=== PATIENT | female | born 1955 | race Caucasian/White ===

== ENCOUNTER 2017-10-20 11:31 | Inpatient (IN) | payer OTHER ==
[2017-10-20] MEDS ORDERED: NS 0.9% 1000 ML* 1,000 ML IV ONE (11:33)
--- NOTE | 2017-10-20 11:52 | RAD ---
INDICATION: Left-sided weakness. COMPARISON: There are no prior studies available for comparison. TECHNIQUE: Contiguous axial sections of the brain were obtained from the skull base to the vertex without contrast. FINDINGS: The ventricles, cisterns and sulci are enlarged consistent with age-related atrophy. There are multiple focal areas of decreased density in the subcortical and periventricular white matter suggestive of moderate chronic small vessel ischemic changes. No other focal abnormality or mass effect is seen. There is no evidence for hemorrhage. No significant focal osseous abnormality is seen. The visualized portion of the paranasal sinuses and mastoid air cells appear clear. The results of this exam were called to the referring clinician at 1147 hours. IMPRESSION: 1. NO EVIDENCE FOR GROSS ACUTE INFARCT, MASS EFFECT OR HEMORRHAGE. 2. FINDINGS MOST CONSISTENT WITH CHRONIC SMALL VESSEL ISCHEMIC CHANGES.
[2017-10-20] MEDS ORDERED: ALTEPLASE IVPB ONE (12:06)
[2017-10-20] MEDS ORDERED: ALTEPLASE IV ONE (12:06)
[2017-10-20] MEDS ORDERED: Alteplase* 100 MG VIAL ONE (12:09)
--- NOTE | 2017-10-20 12:18 | RAD ---
Indication: Code roblero. Comparison: No relevant prior exams available on the [facility] [place]. Technique: Upright AP 1155 hours Report: Clear lungs and pleural spaces. Negative for pneumothorax. The heart, pulmonary vasculature, and mediastinal contours are unremarkable. Unremarkable osseous structures and soft tissue contours. IMPRESSION: No evidence for acute intrathoracic disease.
[2017-10-20 12:25] LABS: Hematocrit 44 % (35-47); Mean Corpuscular HGB Conc 34 g/dl (31-36); Mean Corpuscular Hemoglobin 30 pg (27-31); Mean Corpuscular Volume 88 fL (80-97); Mean Platelet Volume 8 um3 (7.4-10.4); Red Blood Count 5.03 10^6/ul (4.0-5.4); Red Cell Distribution Width 13 % (10.5-15); White Blood Count 10.1 10^3/ul (3.5-10.8)
[2017-10-20 12:47] LABS: Albumin 4.1 g/dL (3.2-5.2); BUN/Creatinine Ratio 22.1 (8-20); Calcium 9.5 mg/dL (8.6-10.3); EGFR Non-African American 66.9 (>60); HDL Cholesterol 48.1 mg/dL; Potassium 3.9 mmol/L (3.5-5.0); Total Bilirubin 0.4 mg/dL (0.2-1.0); Total Protein 7.1 g/dL (6.4-8.9)
[2017-10-20] MEDS ORDERED: Iohexol 350* (CONTRAST) 500 ML MDV IV ONE (13:04)
--- NOTE | 2017-10-20 14:20 | RAD ---
INDICATION: CVA COMPARISON: CT brain October 20, 2017 TECHNIQUE: Axial source images were acquired with coronal and sagittal reconstructions. CT angiographic technique was utilized with injection of 80 mL Visipaque 350. FINDINGS: Aortic arch: There are no CT angiogram abnormalities of the arch or the great vessels arising from the arch. Right carotid: The internal carotid artery, carotid bifurcation, extracranial portions of the internal carotid artery, carotid artery at the skull base, carotid siphon, and carotid termination appear normal. Left carotid:The internal carotid artery, carotid bifurcation, extracranial portions of the internal carotid artery, carotid artery at the skull base, carotid siphon, and carotid termination appear normal. Right middle and anterior cerebral arteries: There are no CT angiographic abnormalities of the middle or anterior cerebral arteries. Left middle and anterior cerebral arteries: There are no CT angiographic abnormalities of the middle or anterior cerebral arteries Right vertebral: The CT angiographic appearance of the vertebral artery is normal. Left vertebral: The CT angiographic appearance of the vertebral artery is normal. Basilar artery: The basilar artery and basilar tip appear normal. Posterior cerebral arteries: The distal distribution of the right and left posterior cerebral arteries is normal. [place]: The CT angiographic appearance of the [place] is normal. Source images show a solid, round to oval in shape, 2.8 x 2.0 cm anterior mediastinal mass. There are no other masses in the neck or visualized mediastinum. There are no focal brain parenchymal abnormalities or abnormal areas of enhancement. IMPRESSION: 1. No CT angiographic abnormalities. 2. Source images show a 2.8 cm anterior mediastinal mass. Differential considerations would include but not be limited to lymphoma, teratoma or thymic lesion. Consider PET imaging. Mediastinoscopy may be indicated. CPT II Codes: 3100F PQRS
[2017-10-20] MEDS ORDERED: Ondansetron INJ* 2 MG/ML VIAL IV PRN (14:48)
[2017-10-20] MEDS ORDERED: Acetaminophen TAB* 325 MG PO PRN (14:48)
--- NOTE | 2017-10-20 14:48 | ED ---
Vitaliy Chawla Benjamin, scribed for Varun Lopez MD on 10/20/17 at 1209 . Neurological HPI - HPI Summary HPI Summary: 62yo female BIBA for sudden onset of left sided weakness and dizziness. No prior hx of CVA. Per EMS, pts systolic BP was in 220s. Pt denies any decreased sensation on the left side. No AMS. No visial changes. No speech impairment. - History of Current Complaint Stated Complaint: CVA Time Seen by Provider: 10/20/17 11:35 Hx Obtained From: Patient Onset/Duration: Sudden Onset, Started hours ago - 1 hour 45 minutes prior to arrival, Still Present Timing: Constant Onset Severity: Moderate Current Severity: Moderate Headache Location: Diffuse (Left) Pain Intensity: 0 Pain Scale Used: 0-10 Numeric Character: Weak - LUE, Motor Weakness - LUE - Allergy/Home Medications Allergies/Adverse Reactions: Allergies Allergy/AdvReac Type Severity Reaction Status Date / Time Nabumetone [From Relafen] Allergy Rash Verified 10/20/17 11:45 Home Medications: Home Medications Allopurinol TAB* [Zyloprim 100 MG TAB*] 100 mg PO DAILY 10/20/17 [History Confirmed 10/20/17] Estradiol (NF) 0.5 mg PO DAILY 10/20/17 [History Confirmed 10/20/17] Ezetimibe TAB* [Zetia TAB*] 10 mg PO DAILY 10/20/17 [History Confirmed 10/20/17] FLUoxetine CAP* [PROzac CAP*] 20 mg PO DAILY 10/20/17 [History Confirmed ] LevoCETirizine TAB (NF) [Xyzal TAB (NF)] 5 mg PO DAILY 10/20/17 [History Confirmed 10/20/17] PMH/Surg Hx/FS Hx/Imm Hx Musculoskeletal History: Denies: Hx Osteoporosis Neurological History: Denies: Hx CVA Infectious Disease History: No Infectious Disease History: Denies: Traveled Outside the [place] in Last 30 Days Review of Systems Constitutional: Negative Eyes: Negative ENT: Negative Cardiovascular: Negative Respiratory: Negative Gastrointestinal: Negative Genitourinary: Negative Musculoskeletal: Negative Skin: Negative Neurological: Other - dizziness, left facial droop Positive: Weakness - LUE. Negative: Syncope, Slurred Speech Psychological: Normal All Other Systems Reviewed And Are Negative: Yes Physical Exam - Summary Physical Exam Summary: VITAL SIGNS: Reviewed. GENERAL: Patient is a well-developed and nourished FEMALE who is lying comfortable in the stretcher. Patient is not in any acute respiratory distress. HEAD AND FACE: No signs of trauma. No ecchymosis, hematomas or skull depressions. No sinus tenderness. EYES: PERRLA, EOMI x 2, No injected conjunctiva, no nystagmus. EARS: Hearing grossly intact. Ear canals and tympanic membranes are within normal limits. MOUTH: Oropharynx within normal limits. NECK: Supple, trachea is midline, no adenopathy, no JVD, no carotid bruit, no c- spine tenderness, neck with full ROM. CHEST: Symmetric, no tenderness at palpation LUNGS: Clear to auscultation bilaterally. No wheezing or crackles. CVS: Regular rate and rhythm, S1 and S2 present, no murmurs or gallops appreciated. ABDOMEN: Soft, non-tender. No signs of distention. No rebound no guarding, and no masses palpated. Bowel sounds are normal. EXTREMITIES: FROM in all major joints, no edema, no cyanosis or clubbing. NEURO: Alert and oriented x 3. Speech is normal and follows commands. Pt was examined by the vita immediately after arrival, before CT scan and being placed in the room. Exam then showed mild left central facial droop and left arm pronator drift. Pt was then brought to have brain CT taken, then was re -examined at the room. Pt exhibited same exam finding when re-examined. Pt had difficulty ambulating when evaluated by Dr. Irby due to LLE weakness. SKIN: Dry and warm Triage Information Reviewed: Yes Vital Signs On Initial Exam: Initial Vitals Temp Pulse Resp BP Pulse Ox 97 F 64 19 188/84 97 10/20/17 11:42 10/20/17 11:42 10/20/17 11:42 10/20/17 11:42 10/20/17 11:42 Vital Signs Reviewed: Yes Diagnostics - Vital Signs Vital Signs Temp Pulse Resp BP Pulse Ox 10/20/17 11:42 97 F 64 19 188/84 97 - Laboratory Lab Results: Lab Results 10/20/17 10/20/17 10/20/17 Range/Units 12:05 12:05 12:05 WBC 10.1 (3.5-10.8) 10^3/ul RBC 5.03 (4.0-5.4) 10^6/ul Hgb 15.0 (12.0-16.0) g/dl Hct 44 (35-47) % MCV 88 (80-97) fL MCH 30 (27-31) pg MCHC 34 (31-36) g/dl RDW 13 (10.5-15) % Plt Count 218 (150-450) 10^3/ul MPV 8 (7.4-10.4) um3 Neut % (Auto) 80.7 (38-83) % Lymph % (Auto) 13.3 L (25-47) % [place] % (Auto) 4.5 (1-9) % Eos % (Auto) 0.8 (0-6) % Baso % (Auto) 0.7 (0-2) % Absolute Neuts (auto) 8.1 H (1.5-7.7) 10^3/ul Absolute Lymphs (auto) 1.3 (1.0-4.8) 10^3/ul Absolute Monos (auto) 0.4 (0-0.8) 10^3/ul Absolute Eos (auto) 0.1 (0-0.6) 10^3/ul Absolute Basos (auto) 0.1 (0-0.2) 10^3/ul Absolute Nucleated RBC 0.01 10^3/ul Nucleated RBC % 0.1 INR (Anticoag Therapy) 0.84 L (0.89-1.11) APTT 24.5 L (26.0-36.3) seconds Sodium 138 (133-145) mmol/L Potassium 3.9 (3.5-5.0) mmol/L Chloride 103 (101-111) mmol/L Carbon Dioxide 26 (22-32) mmol/L Anion Gap 9 (2-11) mmol/L BUN 19 (6-24) mg/dL Creatinine 0.86 (0.51-0.95) mg/dL Est GFR ( Amer) 86.0 (>60) Est GFR (Non-Af Amer) 66.9 (>60) BUN/Creatinine Ratio 22.1 H (8-20) Glucose 142 H (70-100) mg/dL Lactic Acid (0.5-2.0) mmol/L Calcium 9.5 (8.6-10.3) mg/dL Total Bilirubin 0.40 (0.2-1.0) mg/dL AST 20 (13-39) U/L ALT 18 (7-52) U/L Alkaline Phosphatase 87 (34-104) U/L Troponin I 0.00 (<0.04) ng/mL Total Protein 7.1 (6.4-8.9) g/dL Albumin 4.1 (3.2-5.2) g/dL Globulin 3.0 (2-4) g/dL Albumin/Globulin Ratio 1.4 (1-3) Triglycerides 212 mg/dL Cholesterol 264 mg/dL LDL Cholesterol 174 mg/dL HDL Cholesterol 48.1 mg/dL Blood Type Antibody Screen 10/20/17 10/20/17 Range/Units 12:05 12:05 WBC (3.5-10.8) 10^3/ul RBC (4.0-5.4) 10^6/ul Hgb (12.0-16.0) g/dl Hct (35-47) % MCV (80-97) fL MCH (27-31) pg MCHC (31-36) g/dl RDW (10.5-15) % Plt Count (150-450) 10^3/ul MPV (7.4-10.4) um3 Neut % (Auto) (38-83) % Lymph % (Auto) (25-47) % [place] % (Auto) (1-9) % Eos % (Auto) (0-6) % Baso % (Auto) (0-2) % Absolute Neuts (auto) (1.5-7.7) 10^3/ul Absolute Lymphs (auto) (1.0-4.8) 10^3/ul Absolute Monos (auto) (0-0.8) 10^3/ul Absolute Eos (auto) (0-0.6) 10^3/ul Absolute Basos (auto) (0-0.2) 10^3/ul Absolute Nucleated RBC 10^3/ul Nucleated RBC % INR (Anticoag Therapy) (0.89-1.11) APTT (26.0-36.3) seconds Sodium (133-145) mmol/L Potassium (3.5-5.0) mmol/L Chloride (101-111) mmol/L Carbon Dioxide (22-32) mmol/L Anion Gap (2-11) mmol/L BUN (6-24) mg/dL Creatinine (0.51-0.95) mg/dL Est GFR ( Amer) (>60) Est GFR (Non-Af Amer) (>60) BUN/Creatinine Ratio (8-20) Glucose (70-100) mg/dL Lactic Acid 1.2 (0.5-2.0) mmol/L Calcium (8.6-10.3) mg/dL Total Bilirubin (0.2-1.0) mg/dL AST (13-39) U/L ALT (7-52) U/L Alkaline Phosphatase (34-104) U/L Troponin I (<0.04) ng/mL Total Protein (6.4-8.9) g/dL Albumin (3.2-5.2) g/dL Globulin (2-4) g/dL Albumin/Globulin Ratio (1-3) Triglycerides mg/dL Cholesterol mg/dL LDL Cholesterol mg/dL HDL Cholesterol mg/dL Blood Type A Positive Antibody Screen Negative Result Diagrams: 10/20/17 12:05 10/20/17 12:05 Lab Statement: Any lab studies that have been ordered have been reviewed, and results considered in the medical decision making process. - Radiology CXR Xray Interpretation: No Acute Changes Radiology Interpretation Completed By: Radiologist - ED physician has reviewed this radiology report and agrees. - CT Brain CT CT Interpretation: Positive (See Comments) - IMPRESSION: 1. NO EVIDENCE FOR GROSS ACUTE INFARCT, MASS EFFECT OR HEMORRHAGE. 2. FINDINGS MOST CONSISTENT WITH CHRONIC SMALL VESSEL ISCHEMIC CHANGES. CT Interpretation Completed By: Radiologist - ED physician has reviewed this radiology report and agrees. CTA Head CT Interpretation: Positive (See Comments) - IMPRESSION: 1. No CT angiographic abnormalities. 2. Source images show a 2.8 cm anterior mediastinal mass. Differential considerations would include but not be limited to lymphoma, teratoma or thymic lesion. Consider PET imaging. Mediastinoscopy may be indicated. CT Interpretation Completed By: Radiologist - ED physician has reviewed this radiology report and agrees - EKG 1211. Cardiac Rate: Bradycardia EKG Rhythm: Sinus Bradycardia - 54bpm EKG Interpretation: diffuse t waves inversion NIH Scale - NIH Scale Level of Consciousness: Alert/Keenly Responsive Ask Patient the Month and His/Her Age: Both Correct Ask Pt to Open/Close Eyes and Java Flex Developer/Release Non-Paretic Hand: Both Correctly Best Gaze (Only Horizontal Eye Movement): Normal Visual Field Testing: No Visual Loss Facial Paresis-Pt to Smile & Close Eyes or Grimace Symmetry: Minor Paralysis - left face Motor Function - Right Arm: No Drift-Holds 10 Seconds Motor Function - Left Arm: Drifts LT 10 seconds Motor Function - Right Leg: No Drift-Holds 10 Seconds Motor Function - Left Leg: No Drift-Holds 10 Seconds Limb Ataxia-Must be out of Proportion to Weakness Present: Absent Sensory (Use Pinprick to Test Arms/Legs/Trunk/Face): Normal Best Language (Describe Picture, Name Items): No Aphasia Dysarthria (Read Several Words): Normal Extinction and Inattention: No Abnormality Total Score: 2 Course/Dx - Course Course Of Treatment: 62yo female BIBA for sudden onset of left sided weakness and dizziness. No prior hx of CVA. Per EMS, pts systolic BP was in 220s. Pt was examined by the vita immediately after arrival, before CT scan and being placed in the room. Exam then showed mild left central facial droop and left arm pronator drift. Pt was then brought to have brain CT taken, then was re- examined at the room. Pt exhibited same exam findings when re-examined. [facility] [place] was called at arrival. Dr. Irby (Neurologist) was called at 1148 hour regarding code [place] pt. Pt will be admitted to ICU. Spoke to Dr. Aviles about the admission. - Diagnoses Provider Diagnoses: Right-sided cerebrovascular accident (CVA) During the Visit The Following Alert/Code Occurred: Code [place] Is Visit Related: No - Critical Care Time Critical Care Time: 30-74 min Discharge - Discharge Plan Condition: Critical Disposition: ADMITTED TO [facility] Referrals: Renee Fisher PA [Primary Care Provider] - The documentation as recorded by the Vitaliy ho Benjamin accurately reflects the service I personally performed and the decisions made by me, Varun Lopez MD.
[2017-10-20] MEDS ORDERED: hydrALAZINE IV* 20 MG/ML VIAL IV SLOW PU PRN (15:03)
[2017-10-20] MEDS: NS 0.9% 1000 ML* 1,000 ML IV SCH (17:21)
--- NOTE | 2017-10-20 19:38 | CONS ---
CONSULTATION REPORT: DATE OF CONSULT: 10/20/17 PATIENT OF: Dr. Lopez and Renee Fisher RPA HISTORY OF PRESENT ILLNESS: This is a 62-year-old right-handed woman, who at 10 o'clock developed acute onset of left-sided weakness, which affected her walking, involved her arm and face. She came to the emergency room for further evaluation. She had no headache, no clear numbness. No visual symptoms. No recent illness. She did have significant nausea with this. She also had no visual symptoms. She has had no prior strokes. She has no family history of strokes. She denied hyperlipidemia, but is on Zetia. She denied any hypertension. She does not smoke. She has no known AFib. PAST MEDICAL HISTORY: Her only medical problems she knows is some depression. She has had no surgeries. She has not been on any blood thinning products. She has not been on aspirin. She had no recent head trauma. She has had no recent stroke or focal neurological deficits. MEDICATIONS AT HOME: Include: 1. Xyzal 5 mg daily. 2. Allopurinol 100 mg daily. 3. Zetia 10 mg daily. 4. Estradiol 0.5 daily. 5. Fluoxetine 20 mg daily. REVIEW OF SYSTEMS: All 14 spheres negative other than the HPI. PHYSICAL EXAM: Temperature 97, pulse 57, respirations 13, blood pressure 181/ 81. I examined her twice; once shortly before noon and then now at 1:30. I will describe her exam at noon and then note the differences. Currently, she is alert, oriented with normal speech and comprehension. She had no denial of illness and she knew and said her left side was weak and that she had difficulty walking. She had no field cut, no visual disturbance including of the left and there was no neglect. Facies showed a left upper motor neuron facial weakness, which was clear cut and according to the patient, this is new. Rest of cranial nerves II through XII were normal. Fundi were benign. Motor exam revealed normal tone. Strength was 5-/5 strength in the left arm. Trace weakness in the left leg. Otherwise intact. She had a clear-cut pronator drift. She had some mild clumsiness reaching for objects in the left hand and [id number] on the left. When I walked her, she needed a 1-person assist and her left leg tended to buckle. She said that that had been going on since 10 o' clock and was not a change. Her speech was normal with normal naming, repetition, fluency, and comprehension. Chest: Clear. Cardiovascular: Regular rate and rhythm. Abdomen: Soft with positive bowel sounds. DIAGNOSTIC STUDIES/LAB DATA: Reviewed her CT scan which showed some diffuse small vessel ischemic disease. No acute findings. Her CTA is pending. Labs included normal CMP, other than glucose of 142. Her LDL was 174 nonfasting. She had INR of 0.4, PTT 24.5. Normal CBC. IMPRESSION: I discussed with her in detail and Dr. Lopez that she most likely had an acute stroke in that although if it is not severe, but is clearly affecting her ability to walk and because of this reason, I discussed the pros and cons of tPA and she elected to treat. I discussed the issue of bleeding from tPA in detail with her. She has gotten tPA. She has just had her CTA and she will be presumably admitted to the ICU for further evaluation. She will have imaging studies 24 hours after tPA was given tomorrow at noon. We can get an MRI scan at that point. She will need a cardiac echo. Once 24 hours past, we may well put her on antiplatelet medicine unless she has a cardiac arrhythmia. Thank you for sharing her case. [id number]/[facility] #: [id number] NAIF
--- NOTE | 2017-10-20 19:46 | HP ---
ADDENDUM NOW INCLUDED ON THIS REPORT CC: Dr. Fisher; Dr. Irby * HISTORY AND PHYSICAL: DATE OF ADMISSION: 10/20/17 PRIMARY CARE PROVIDER: Dr. Fisher. ATTENDING PHYSICIAN WHILE IN THE HOSPITAL: Radu Aviles MD * (report dictated by Fernandez Iyer NP). CHIEF COMPLAINT: Left-sided weakness. HISTORY OF PRESENT ILLNESS: Mrs. Puri is a 62-year-old female patient. She has a history of gout, hyperlipidemia, fibromyalgia and uterine cancer, who comes into our ER today. At 9:45, she was at home, she just gotten done doing her chores for the day. 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 She says that she was concerned and she called her family and they brought her into the hospital immediately. She denied having any visual changes on that side. The family does state that her speech did sound somewhat slurred, but there was no trouble with her words. She says she was talking fluently and not having any difficulty finding words. She did state that she was having trouble walking on the left side because she was so weak. She denied having any chest pain. No shortness of breath. No palpitations. No recent fevers, chills, dysuria, or frequencies and no loss of consciousness. There was concern when she came in, it was obvious that she had a focal deficits and francesca holt was called and she was actually given tPA. Because of this, we were asked to evaluate for admission. PAST MEDICAL HISTORY: Significant for: 1. Gout. 2. Hyperlipidemia. 3. Fibromyalgia. 4. Uterine cancer. PAST SURGICAL HISTORY: 1. She has had a total abdominal hysterectomy with a bilateral salpingo- oophorectomy. 2. She had tubal ligation prior to this. MEDICATIONS: Home meds include: 1. Levocetirizine 5 mg p.o. daily. 2. Allopurinol 100 mg daily. 3. Zetia 10 mg p.o. daily. 4. Estradiol 0.5 mg daily. 5. Prozac 20 mg daily. ALLERGIES TO MEDICATIONS: Include NSAIDs. FAMILY HISTORY: Reviewed. She specifically denied the family having any type of cancers, MIs, or strokes and no diabetes or blood pressure. SOCIAL HISTORY: She does not smoke. She does not drink. Surrogate decision maker is her mother. REVIEW OF SYSTEMS: There is no documented fever. She denied having any significant weight change. There was no double vision. There was no ear discharge. She denies having any rhinorrhea. There was no sore throat. No thyroid enlargement. She denied having any chest pain. There was no orthopnea. No nocturnal dyspnea. There was no abdominal pain, no nausea, no vomiting, no dysuria, no frequency. There was no seizure, no loss of consciousness, no pruritus, and no skin ulcerations. Review of 14 systems completed, all others negative. PHYSICAL EXAMINATION GENERAL: At this time, Mrs. Puri is a 62-year-old female patient. She appears to be well nourished, well developed. She does not appear to be in any acute distress. She is awake and alert. VITAL SIGNS: Blood pressure 185/81, pulse 70, respirations 20, O2 sat 97%, temperature 97. HEENT: Head: Atraumatic, normocephalic. Eyes: EOMs are intact. Sclerae are anicteric and not pale. Throat: Oral mucosa appears to be moist. No oropharyngeal erythema. NECK: Supple. LUNGS: Clear to auscultation bilaterally. No wheezes, rales, or rhonchi. HEART: Sounds S1, S2. Regular rate and rhythm. No murmurs, rubs, or gallops. ABDOMEN: Soft, flat, and nontender. Bowel sounds are present. EXTREMITIES: Pulses were 2+ throughout. She has weakness noted on the left side, which she she had 5/5 strength on the right, 4/5 on the left side. No peripheral edema noted. NEUROLOGICAL: She is awake, alert, and oriented x3. Her speech to wv sounds clear. Barber Shop Manager were equal. Tongue was midline. She had no facial drooping. She did have some numbness on the left side of her face. [id number] intact on the right side. There was some limb ataxia on the left side and with heel-to -ruiz on the left side, there was some ataxia as well. There was weakness noted to the left side and she had a slight pronator drift as well. No other gross focal deficits were noted. SKIN: Her skin was intact. DIAGNOSTIC STUDIES/LAB DATA: WBC 10.1, RBC is 5.03, hemoglobin of 15.0, hematocrit of 44, platelet count of 218. INR was 0.84, PTT of 24.5. Sodium 138 , potassium 3.9, chloride 103, bicarb 26, BUN 19, creatinine 0.86, glucose 142, lactate 1.2, calcium 9.5, total bili 0.4, AST 20, ALT 18, alk phos 87. Troponin 0. Albumin of 4.1. She had a brain CT obtained today, which revealed no evidence for a gross acute infarct, mass effect, or hemorrhage. Findings consistent with chronic small vessel ischemic changes. She had a chest x-ray obtained today, which revealed no evidence for acute intrathoracic disease. She had an EKG obtained today as well, which showed it is a normal sinus rhythm. She is actually sinus bradycardic, rate of 54. She had diffuse T-wave inversions. I do not have a previous for comparison, but no ST elevations were noted. She had a head CTA obtained today as well, which revealed no CT angiographic abnormalities. Source images show a 2.8 cm anterior mediastinal mass. Differential considerations would include, but not limited to lymphoma, teratoma , or thymic lesion. Consider PET imaging. Mediastinoscopy may be indicated. Old medical records were reviewed. ASSESSMENT AND PLAN: Mrs. Puri is a 62-year-old female patient, coming into the ED today with complaints of left-sided weakness. On evaluation, there was concern for cerebrovascular accident. She was given tPA. She will be admitted under inpatient status for: 1. Cerebrovascular accident. Again at this point, she was taking estradiol, which certainly increase the risk for stroke. Plan will be to again she got tPA. We are going to get frequent neuro checks, frequent vitals. She will be n.p.o. when on bed rest for the first 24 hours. TPA was given later on 10 o' clock. We will get an MRI of the brain tomorrow around 10 o'clock in the morning to look for any evidence of bleeding and to further delineate the cerebrovascular accident. Dr. Irby did recommend this. We will get an echo as well with a bubble study. She has already had the CTA. She will be placed on telemetry monitoring. We will get an A1c and lipid panel in the morning. She will be started on aspirin. If there has been no evidence of bleeding in 24 hours, rule out for permissive hypertension. We will keep the blood pressure less than 200 that was a recommendation of Dr. Irby for the systolic blood pressure and I will continue to follow her closely. She will be n.p.o. We will get Speech involve tomorrow and PT and OT involve tomorrow as well. 2. Gout. We are going to hold her allopurinol. We will restart it when able. 3. Hyperlipidemia. Check lipid panel. We will consider starting statins in the morning. 4. History of fibromyalgia. We will continue her meds in the morning. 5. History of uterine cancer. Follow with her primary. 6. A 2.8 cm mediastinal mass. At this point, obviously we cannot do any biopsies because of the tPA, but this will need to be worked up. We could consider getting a CT of the chest tomorrow for further evaluation. She did have a contrast load today, so I am going to hold off on this until she is outside the window of the tPA for the first 24 hours, then we will again consider with further workup. 7. DVT prophylaxis. SCDs only. 8. Code status. She is a full code. 9. Fluids, electrolytes, and nutrition. N.p.o. She has a normal saline at 50 an hour. TIME SPENT: On this admission was 60 minutes, greater than half of the time was spent in [id number] with the patient, obtaining my history and physical, the other half of the time was spent in going over the plan of care with the patient and implementing the plan of care. I did discuss plan of care with my attending, Dr. Aviles, he is in agreement. ADDENDUM: ASSESSMENT/PLAN: The patient does have noted again diffuse T-wave inversions. She is currently asymptomatic from a cardiac standpoint. There is no chest pain or shortness of breath and she has not been complaining of having any chest pain with exertion. I have no previous EKG for comparison. I am going to cycle her troponins. We are getting an echo in the morning. We will get a repeat EKG in the morning as well and we will follow this closely. FERNANDEZ IYER, DAPHNE [id number]/[facility] #: [id number]/[facility] #: [id number] [facility]Jose
[2017-10-20 20:44] LABS: Urine Bacteria Absent (Absent); Urine Bilirubin Negative (Negative); Urine Glucose Negative (Negative); Urine Nitrite Negative (Negative)
--- NOTE | 2017-10-20 20:44 | HP ---
HISTORY AND PHYSICAL: ADDENDUM: ASSESSMENT/PLAN: The patient does have noted again diffuse T wave inversions. She is currently asymptomatic from a cardiac standpoint. There is no chest pain or shortness of breath and she has not been complaining of having any chest pain with exertion. I have no previous EKG for comparison. I am going to cycle her troponins. We are getting an echo in the morning. We will get a repeat EKG in the morning as well and we will follow this closely. TABATHA TONY, DAPHNE [id number]/[facility] #: [id number] NAIF
[2017-10-21 06:01] LABS: Hematocrit 41 % (35-47); Hemoglobin 13.8 g/dl (12.0-16.0); Mean Corpuscular HGB Conc 34 g/dl (31-36); Mean Corpuscular Hemoglobin 30 pg (27-31); Mean Corpuscular Volume 87 fL (80-97); Mean Platelet Volume 8 um3 (7.4-10.4); Red Blood Count 4.68 10^6/ul (4.0-5.4); Red Cell Distribution Width 13 % (10.5-15); White Blood Count 14.5 10^3/ul (3.5-10.8)
[2017-10-21 06:15] LABS: BUN/Creatinine Ratio 15.7 (8-20); Calcium 8.7 mg/dL (8.6-10.3); EGFR African American 89.6 (>60); EGFR Non-African American 69.7 (>60); Potassium 3.3 mmol/L (3.5-5.0)
--- NOTE | 2017-10-21 09:25 | ECHO ---
Patient: ABELARDO KEVIN [facility] Rec#: [id number] : 1955 Date: 10/21/2017 Age: 62y Height: 157.5 cm / 62.0 in Weight: 68 kg / 149.9 lbs Sex: F BSA: 1.7 Room#: ICU 8 Admit Date#: 10/20/2017 Type: Inpatient Referring: Fernandez Iyer NP Reading: Bryant Rodriguez DO Electrotyper Apprentice: Trinh Zamora RN RDCS CC: GORDO Magana Transthoracic Echocardiogram Indication: CVA BP: 156/74 HR: 62 Rhythm: NSR Findings History: HLD, gout, fibromyalgia, uterine cancer Technical Comments: The study quality is fair. The study is technically limited due to patient body habitus. Left Ventricle: The left ventricular chamber size is normal. There is no left ventricular hypertrophy. Global left ventricular wall motion and contractility are within normal limits. There is normal left ventricular systolic function. The estimated ejection fraction is 55-60%. Normal left ventricular diastolic filling is observed. Left Atrium: The left atrium is slightly dilated. Right Ventricle: The right ventricular chamber size and systolic function are within normal limits. Right Atrium: The right atrial cavity size is normal. The bubble study is negative. A patent foramen ovale is not demonstrated with color Doppler and agitated contrast. Aortic Valve: The aortic valve is trileaflet. The aortic valve leaflets are mildly thickened. There is no evidence of aortic regurgitation. There is no evidence of aortic stenosis. Mitral Valve: The mitral valve leaflets are mildly thickened. There is trace to mild mitral regurgitation. There is no evidence of mitral stenosis. Tricuspid Valve: The tricuspid valve leaflets are normal. There is trace tricuspid regurgitation. Unable to estimate the right ventricular systolic pressure. There is no tricuspid stenosis. Pulmonic Valve: The pulmonic valve structure is not well visualized. There is a trace pulmonic regurgitation. There is no pulmonic stenosis. Pericardium: There is no significant pericardial effusion. Aorta: There is no dilatation of the ascending aorta. There is no dilatation of the aortic arch. The aortic root is normal in size. Pulmonary Artery: The main pulmonary artery is not well visualized. Venous: The inferior vena cava appears normal in size. There is an approximate 50% respiratory change in the inferior vena cava dimension. Contrast: Normal saline was used as contrast for the bubble study. Images 96 and 97. Conclusions The left ventricular chamber size is normal. There is no left ventricular hypertrophy. Global left ventricular wall motion and contractility are within normal limits. There is normal left ventricular systolic function. The estimated ejection fraction is normal at 55-60%. The left atrium is slightly dilated. The right ventricular chamber size and systolic function are within normal limits. No significant valvular abnormalities noted. The agitated saline "bubble study" is negative. No prior studies available for comparison at time of interpretation. Measurements Name Value Normal Range RVDdMajor (2D) 3 cm (2.2 - 4.4) RAd ISD 4CH 4.7 cm (3.4 - 4.9) RA (A4C)W 4.1 cm (2.9 - 4.6) IVSd (2D) 0.9 cm (0.6 - 1) LVPWd (2D) 0.9 cm (0.6 - 1) LVIDd (2D) 3.6 cm (3.6 - 5.4) LVIDs (2D) 2.6 cm - LV FS (2D) 28 % (25 - 45) Aortic Annulus 1.9 cm (1.4 - 2.6) Ao root diameter (2D) 2.4 cm (2.1 - 3.5) Ascending Ao 2.8 cm (2.1 - 3.4) Aortic arch 3 cm (1.8 - 3.4) LA dimension (AP) 2D 3.4 cm (2.3 - 3.8) LAd ISD 4CH 4.9 cm (2.9 - 5.3) LA ISD 4CH W 3.8 cm (2.5 - 4.5) Name Value Normal Range LA ESV SP 4CH (A/L) 45 ml - LA ESV SP 2CH (A/L) 60 ml - LA ESV BP (A/L) 55 ml - LA ESV BP (A/L) index 33 ml/m2 - LA ESV SP 4CH (MOD) 42 ml - LA ESV SP 2CH (MOD) 58 ml - Name Value Normal Range MV E-wave Vmax 0.81 m/sec - MV deceleration time 219 msec - MV A-wave Vmax 0.72 m/sec - MV E:A ratio 1.1 ratio - LV septal e' Vmax 0.09 m/sec - LV lateral e' Vmax 0.12 m/sec - LV E:e' septal ratio 9 ratio - LV E:e' lateral ratio 6.8 ratio - Name Value Normal Range AV Vmax 1.3 m/sec - AV VTI 29.3 cm - AV peak gradient 6.9 mmHg - AV mean gradient 3.6 mmHg - LVOT Vmax 1.1 m/sec - LVOT VTI 24.4 cm - LVOT peak gradient 4.5 mmHg - LVOT mean gradient 2.5 mmHg - YOSELIN Vmax 0.68 m/sec - Name Value Normal Range IVC diameter 1.4 cm - Name Value Normal Range PV Vmax 0.92 m/sec -
--- NOTE | 2017-10-21 10:08 | PN ---
Subjective Date of Service: 10/21/17 Interval History: Pt states her left side is weaker now. No other c/o. Objective Active Medications: Acetaminophen (Tylenol Tab*) 650 mg PO Q4H PRN PRN Reason: FEVER/PAIN Allopurinol (Zyloprim Tab*) 100 mg PO DAILY [facility] Aspirin (Aspirin Low Dose Tab*) 81 mg PO DAILY [facility] Atorvastatin Calcium (Lipitor*) 80 mg PO 1700 ADRIANA Fluoxetine HCl (Prozac Cap*) 20 mg PO DAILY [facility] Hydralazine HCl (Apresoline Iv*) 5 mg IV SLOW PU Q6H PRN PRN Reason: BLOOD PRESSURE Last Admin: 10/20/17 16:14 Dose: 5 mg Sodium Chloride (Ns 0.9% 1000 Ml*) 1,000 mls @ 50 mls/hr IV .per rate ADRIANA Last Admin: 10/20/17 17:21 Dose: 50 mls/hr Ondansetron HCl (Zofran Inj*) 4 mg IV Q6H PRN PRN Reason: NAUSEA Last Admin: 10/20/17 15:57 Dose: 4 mg Vital Signs 10/20/17 10/20/17 10/20/17 15:00 15:54 16:00 Temperature 97.4 F 97.4 F Pulse Rate 63 60 Respiratory 15 18 15 Rate Blood Pressure 181/82 210/76 (mmHg) O2 Sat by Pulse 98 98 Oximetry 10/20/17 10/20/17 10/20/17 16:04 16:06 16:16 Temperature Pulse Rate 53 59 62 Respiratory 12 14 17 Rate Blood Pressure 211/147 210/76 193/84 (mmHg) O2 Sat by Pulse 99 95 97 Oximetry 10/20/17 10/20/17 10/20/17 16:27 16:32 16:46 Temperature Pulse Rate 71 64 65 Respiratory 16 14 19 Rate Blood Pressure 174/80 162/91 (mmHg) O2 Sat by Pulse 97 98 97 Oximetry 10/20/17 10/20/17 10/20/17 17:00 17:16 17:24 Temperature Pulse Rate 66 73 67 Respiratory 17 18 24 Rate Blood Pressure 177/81 172/100 (mmHg) O2 Sat by Pulse 97 100 98 Oximetry 10/20/17 10/20/17 10/20/17 17:30 17:45 18:00 Temperature Pulse Rate 71 69 69 Respiratory 16 13 16 Rate Blood Pressure 165/98 161/79 156/76 (mmHg) O2 Sat by Pulse 96 96 98 Oximetry 10/20/17 10/20/17 10/20/17 18:15 18:29 18:31 Temperature Pulse Rate 67 75 76 Respiratory 15 12 17 Rate Blood Pressure 164/93 162/83 (mmHg) O2 Sat by Pulse 97 98 98 Oximetry 10/20/17 10/20/17 10/20/17 18:46 19:00 19:15 Temperature Pulse Rate 71 70 74 Respiratory 11 14 14 Rate Blood Pressure 179/62 150/89 174/84 (mmHg) O2 Sat by Pulse 98 99 97 Oximetry 10/20/17 10/20/17 10/20/17 19:31 19:46 20:00 Temperature Pulse Rate 74 74 74 Respiratory 16 16 21 Rate Blood Pressure 186/76 194/79 (mmHg) O2 Sat by Pulse 97 96 98 Oximetry 10/20/17 10/20/17 10/20/17 20:01 20:05 20:16 Temperature Pulse Rate 76 81 74 Respiratory 16 16 21 Rate Blood Pressure 186/79 175/84 (mmHg) O2 Sat by Pulse 96 98 97 Oximetry 10/20/17 10/20/17 10/20/17 20:30 20:45 21:00 Temperature Pulse Rate 74 72 76 Respiratory 14 13 19 Rate Blood Pressure 170/85 174/79 (mmHg) O2 Sat by Pulse 97 97 96 Oximetry 10/20/17 10/20/17 10/20/17 21:01 21:16 21:27 Temperature Pulse Rate 76 76 74 Respiratory 18 18 13 Rate Blood Pressure 168/108 171/77 (mmHg) O2 Sat by Pulse 97 96 96 Oximetry 10/20/17 10/20/17 10/20/17 21:30 21:46 22:00 Temperature Pulse Rate 75 83 80 Respiratory 13 15 16 Rate Blood Pressure 166/76 170/81 (mmHg) O2 Sat by Pulse 97 98 98 Oximetry 10/20/17 10/20/17 10/20/17 22:01 22:09 22:16 Temperature Pulse Rate 82 74 80 Respiratory 19 14 18 Rate Blood Pressure 175/78 165/73 (mmHg) O2 Sat by Pulse 97 97 96 Oximetry 10/20/17 10/20/17 10/20/17 22:31 22:46 23:00 Temperature Pulse Rate 77 77 73 Respiratory 17 17 13 Rate Blood Pressure 159/81 175/79 160/72 (mmHg) O2 Sat by Pulse 98 96 96 Oximetry 10/20/17 10/20/17 10/20/17 23:15 23:30 23:45 Temperature Pulse Rate 76 77 76 Respiratory 21 13 17 Rate Blood Pressure 161/72 159/74 175/72 (mmHg) O2 Sat by Pulse 95 96 96 Oximetry 10/20/17 10/20/17 10/21/17 23:51 23:52 00:00 Temperature 99.2 F Pulse Rate 74 78 75 Respiratory 12 13 14 Rate Blood Pressure 164/74 (mmHg) O2 Sat by Pulse 97 96 97 Oximetry 10/21/17 10/21/17 10/21/17 00:15 00:31 00:46 Temperature Pulse Rate 84 70 72 Respiratory 16 13 15 Rate Blood Pressure 158/76 143/71 166/75 (mmHg) O2 Sat by Pulse 97 97 96 Oximetry 10/21/17 10/21/17 10/21/17 01:00 01:15 01:30 Temperature Pulse Rate 71 70 71 Respiratory 12 14 12 Rate Blood Pressure 153/82 167/69 163/72 (mmHg) O2 Sat by Pulse 96 96 96 Oximetry 10/21/17 10/21/17 10/21/17 01:45 02:00 02:15 Temperature Pulse Rate 70 70 72 Respiratory 14 12 14 Rate Blood Pressure 166/69 165/76 167/73 (mmHg) O2 Sat by Pulse 96 95 97 Oximetry 10/21/17 10/21/17 10/21/17 02:30 02:45 03:00 Temperature Pulse Rate 69 73 67 Respiratory 16 15 12 Rate Blood Pressure 155/72 159/76 148/69 (mmHg) O2 Sat by Pulse 96 96 97 Oximetry 10/21/17 10/21/17 10/21/17 03:15 03:45 04:00 Temperature 99.0 F Pulse Rate 66 73 72 Respiratory 13 15 13 Rate Blood Pressure 153/67 179/72 (mmHg) O2 Sat by Pulse 97 97 97 Oximetry 10/21/17 10/21/17 10/21/17 04:01 04:22 04:30 Temperature Pulse Rate 70 66 Respiratory 15 15 Rate Blood Pressure 137/62 171/69 (mmHg) O2 Sat by Pulse 97 97 96 Oximetry 10/21/17 10/21/17 10/21/17 04:45 05:00 05:15 Temperature Pulse Rate 66 66 67 Respiratory 12 11 12 Rate Blood Pressure 157/75 150/72 158/71 (mmHg) O2 Sat by Pulse 95 95 95 Oximetry 10/21/17 10/21/17 10/21/17 05:30 05:45 06:00 Temperature Pulse Rate 67 72 69 Respiratory 16 20 11 Rate Blood Pressure 153/72 156/74 (mmHg) O2 Sat by Pulse 96 94 97 Oximetry 10/21/17 10/21/17 10/21/17 06:01 06:16 06:30 Temperature Pulse Rate 73 68 64 Respiratory 16 12 12 Rate Blood Pressure 179/82 163/78 170/73 (mmHg) O2 Sat by Pulse 97 97 96 Oximetry 10/21/17 10/21/17 10/21/17 06:45 07:00 07:15 Temperature Pulse Rate 66 64 66 Respiratory 11 13 12 Rate Blood Pressure 144/74 170/76 161/70 (mmHg) O2 Sat by Pulse 97 96 96 Oximetry 10/21/17 10/21/17 10/21/17 07:30 07:31 07:55 Temperature 100.8 F Pulse Rate 77 Respiratory 20 16 Rate Blood Pressure 159/65 (mmHg) O2 Sat by Pulse 96 Oximetry 10/21/17 08:00 Temperature Pulse Rate 65 Respiratory 11 Rate Blood Pressure 170/74 (mmHg) O2 Sat by Pulse 97 Oximetry Oxygen Devices in Use Now: None Appearance: Alert, partly up in ICU bed. In fair spirits. Looks comfortable. Eyes: No Scleral Icterus Respiratory: Symmetrical Chest Expansion and Respiratory Effort, Clear to Auscultation, Clear to Percussion Cardiovascular: NL Sounds; No Murmurs; No JVD, RRR, No Edema Extremities: No Edema, No Clubbing, Cyanosis, - Skin: No Rash or Ulcers, No Nodules or Sclerosis, - Neurological: Alert and Oriented x 3, NL Sensation - L facial weakness. L locks tender 3 /5. 0/6 L foor dorsiflexion. 4/5 L hip flexion Result Diagrams: 10/21/17 05:50 10/21/17 05:50 Additional Lab and Data: Lab Results 10/20/17 10/20/17 10/20/17 Range/Units 12:05 12:05 12:05 WBC 10.1 (3.5-10.8) 10^3/ul RBC 5.03 (4.0-5.4) 10^6/ul Hgb 15.0 (12.0-16.0) g/dl Hct 44 (35-47) % MCV 88 (80-97) fL MCH 30 (27-31) pg MCHC 34 (31-36) g/dl RDW 13 (10.5-15) % Plt Count 218 (150-450) 10^3/ul MPV 8 (7.4-10.4) um3 Neut % (Auto) 80.7 (38-83) % Lymph % (Auto) 13.3 L (25-47) % Haines % (Auto) 4.5 (1-9) % Eos % (Auto) 0.8 (0-6) % Baso % (Auto) 0.7 (0-2) % Absolute Neuts (auto) 8.1 H (1.5-7.7) 10^3/ul Absolute Lymphs (auto) 1.3 (1.0-4.8) 10^3/ul Absolute Monos (auto) 0.4 (0-0.8) 10^3/ul Absolute Eos (auto) 0.1 (0-0.6) 10^3/ul Absolute Basos (auto) 0.1 (0-0.2) 10^3/ul Absolute Nucleated RBC 0.01 10^3/ul Nucleated RBC % 0.1 INR (Anticoag Therapy) 0.84 L (0.89-1.11) APTT 24.5 L (26.0-36.3) seconds Sodium 138 (133-145) mmol/L Potassium 3.9 (3.5-5.0) mmol/L Chloride 103 (101-111) mmol/L Carbon Dioxide 26 (22-32) mmol/L Anion Gap 9 (2-11) mmol/L BUN 19 (6-24) mg/dL Creatinine 0.86 (0.51-0.95) mg/dL Est GFR ( Amer) 86.0 (>60) Est GFR (Non-Af Amer) 66.9 (>60) BUN/Creatinine Ratio 22.1 H (8-20) Glucose 142 H (70-100) mg/dL Lactic Acid (0.5-2.0) mmol/L Calcium 9.5 (8.6-10.3) mg/dL Total Bilirubin 0.40 (0.2-1.0) mg/dL AST 20 (13-39) U/L ALT 18 (7-52) U/L Alkaline Phosphatase 87 (34-104) U/L Troponin I 0.00 (<0.04) ng/mL Total Protein 7.1 (6.4-8.9) g/dL Albumin 4.1 (3.2-5.2) g/dL Globulin 3.0 (2-4) g/dL Albumin/Globulin Ratio 1.4 (1-3) Triglycerides 212 mg/dL Cholesterol 264 mg/dL LDL Cholesterol 174 mg/dL HDL Cholesterol 48.1 mg/dL Blood Type Antibody Screen 10/20/17 10/20/17 Range/Units 12:05 12:05 WBC (3.5-10.8) 10^3/ul RBC (4.0-5.4) 10^6/ul Hgb (12.0-16.0) g/dl Hct (35-47) % MCV (80-97) fL MCH (27-31) pg MCHC (31-36) g/dl RDW (10.5-15) % Plt Count (150-450) 10^3/ul MPV (7.4-10.4) um3 Neut % (Auto) (38-83) % Lymph % (Auto) (25-47) % Haines % (Auto) (1-9) % Eos % (Auto) (0-6) % Baso % (Auto) (0-2) % Absolute Neuts (auto) (1.5-7.7) 10^3/ul Absolute Lymphs (auto) (1.0-4.8) 10^3/ul Absolute Monos (auto) (0-0.8) 10^3/ul Absolute Eos (auto) (0-0.6) 10^3/ul Absolute Basos (auto) (0-0.2) 10^3/ul Absolute Nucleated RBC 10^3/ul Nucleated RBC % INR (Anticoag Therapy) (0.89-1.11) APTT (26.0-36.3) seconds Sodium (133-145) mmol/L Potassium (3.5-5.0) mmol/L Chloride (101-111) mmol/L Carbon Dioxide (22-32) mmol/L Anion Gap (2-11) mmol/L BUN (6-24) mg/dL Creatinine (0.51-0.95) mg/dL Est GFR ( Amer) (>60) Est GFR (Non-Af Amer) (>60) BUN/Creatinine Ratio (8-20) Glucose (70-100) mg/dL Lactic Acid 1.2 (0.5-2.0) mmol/L Calcium (8.6-10.3) mg/dL Total Bilirubin (0.2-1.0) mg/dL AST (13-39) U/L ALT (7-52) U/L Alkaline Phosphatase (34-104) U/L Troponin I (<0.04) ng/mL Total Protein (6.4-8.9) g/dL Albumin (3.2-5.2) g/dL Globulin (2-4) g/dL Albumin/Globulin Ratio (1-3) Triglycerides mg/dL Cholesterol mg/dL LDL Cholesterol mg/dL HDL Cholesterol mg/dL Blood Type A Positive Antibody Screen Negative Microbiology and Other Data: Microbiology 10/20/17 15:56 Nasal Screen MRSA (PCR)(ELYSE) - Final Nasal Mrsa Negative Assess/Plan/Problems-Billing Assessment: - Patient Problems (1) Right sided cerebral infarction Current Visit: Yes Status: Acute Code(s): I63.9 - CEREBRAL INFARCTION, UNSPECIFIED SNOMED Code(s): 340328728 Comment: S/P TPA. Start ASA and statin 10/21. MRI pending in next half- hour 10/21.. (2) Gout Current Visit: Yes Status: Acute Code(s): M10.9 - GOUT, UNSPECIFIED SNOMED Code(s): 16050433 Comment: Continue allopurinol pending swallow eval. (3) Hyperlipidemia Current Visit: Yes Status: Acute Code(s): E78.5 - HYPERLIPIDEMIA, UNSPECIFIED SNOMED Code(s): 00616781 Comment: Patient states she had total body swelling after one or a few doses of an unknown statin about 10 yrs ago. Trial atorvastatin 10 mg 12/ in AM. Ezetimibe on hold. (4) Fibromyalgia Current Visit: Yes Status: Acute Code(s): M79.7 - FIBROMYALGIA SNOMED Code (s): 265292402 Comment: Continue fluoxetine.
--- NOTE | 2017-10-21 11:22 | RAD ---
Indication: CVA post TPA. LEFT side weakness. Comparison: October 20, [address] angi[address] non[address] CT. Technique: [employer]S Marquez 1.5 Arina [id number] with GEM suite. MRI brain without contrast. Report: Approximate 1.1 cm AP by 0.9 cm transverse region of restricted diffusion with corresponding decreased signal on ADC map at the RIGHT midbrain in the anterior to mid aspect. Subtle corresponding T2 hyperintensity however there is no significant mass effect. No additional foci of acute or subacute ischemia evident. Susceptibility series is negative for stigmata of hemosiderin deposition to indicate previous hemorrhage. Only mild diffuse prominence of the cerebral sulci. Unremarkable ventricles and basal cisterns. Grossly symmetric moderately severe burden of increased T2 and FLAIR signal in the periventricular and subcortical white matter of the frontal and parietal lobes most consistent with chronic small vessel ischemic disease. No intra or extra-axial mass lesion or fluid collection evident. Preserved major intracranial flow-voids. Unremarkable orbital contents. Unremarkable calvarium and skull base as well as the paranasal sinuses and mastoid air spaces. Unremarkable scalp. IMPRESSION: 1. Solitary focus of subacute ischemia at the RIGHT midbrain. No corresponding mass effect. 2. While not entirely specific the white matter signal changes at the cerebrum are most suggestive of chronic small vessel ischemic disease.
[2017-10-21] MEDS ORDERED: KCL 10 MEQ/50 ML IVPREMIX* 10 MEQ/50 ML BAG ONE (12:10)
[2017-10-21] MEDS: POTASSIUM CHLORIDE 10 MEQ/50 ML IV SCH ×4 (12:24→20:55)
[2017-10-21] MEDS: Aspirin Low Dose CHEW TAB* 81 MG PO SCH (13:16)
[2017-10-21] MEDS: FLUoxetine CAP* 20 MG PO SCH (13:16)
[2017-10-21] MEDS: Allopurinol TAB* 100 MG PO SCH (13:16)
[2017-10-21] MEDS: NS 0.9% 1000 ML* 1,000 ML IV SCH (13:21)
[2017-10-21] MEDS ORDERED: Atorvastatin* 80 MG TAB PO SCH (17:00)
--- NOTE | 2017-10-21 23:47 | PN ---
PROGRESS NOTE: DATE OF VISIT: 10/21/17 PATIENT OF: Dr. Lan. HISTORY: This is a neurological followup on this 62-year-old, who is status post tPA 24 hours ago for her left hemiparesis. She notes that although she initially improved from the tPA and was doing fine last evening, when she woke up this morning, she had worse arm, leg, and face weakness, and before she denies any numbness, has no headache. She has no visual symptoms. MEDICATIONS: Include: 1. Lipitor 10 mg daily. 2. Prozac 20 mg daily. 3. Allopurinol 100 mg daily. 4. She is on p.r.n. blood pressure medication. 5. Aspirin is being started later today. PHYSICAL EXAMINATION: Temperature 100.8 this morning, pulse 70, respirations 16 , blood pressure 149/79. She is alert and oriented with normal speech and comprehension. She had no left-sided neglect. She had no denial of illness. Cranial nerves II through XII are normal other than she had a left upper motor neuron facial weakness, which is more pronounced than yesterday. She had worse left-sided weakness than yesterday. She could lift her left arm against gravity but not against resistance. Her strength in her left leg was 4+/5 today and she was trace weak yesterday initially. Reflexes were 1 and equal. Toes were equivocal on the left, downgoing on the right. Sensation intact to light touch. Chest: Clear. Cardiovascular: Regular rate and rhythm without murmur. Abdomen: Soft with positive bowel sounds. DIAGNOSTIC STUDIES/LAB DATA: Her CTA showed no significant stenosis or vascular abnormalities. However, there was a possible anterior mediastinal mass noted on CTA. Her MRI scan was reviewed and showed some extensive chronic white matter disease as well as a right mid brain subacute stroke. This was done at roughly 10 this morning. She had a transthoracic echo, which showed no source of clot and bubble study was done, the left atrium most likely dilated. Labs include white count 14.5 today, hematocrit 41, platelet count 228. INR today 0.98. Chemistries today showed potassium of 3.3, glucose 114, hemoglobin A1c of 5.8, LDL was 163. IMPRESSION AND PLAN: Cally has a right mid brain acute stroke causing her left hemiparesis. She has tolerated tPA well but her symptoms progressed overnight. I agree that she should be on aspirin. I will discuss with Dr. Lan to increase to 325 and we will discuss targeting her LDL bit more intensively. She will need physical therapy and rehab. We will watch her in the unit for few more hours but most likely she will be able to go to the floor later today. Discussed these issues with the patient as well. [id number]/[facility] #: [id number] MTDD
[2017-10-22 06:57] LABS: Hematocrit 40 % (35-47); Hemoglobin 13.5 g/dl (12.0-16.0); Mean Corpuscular HGB Conc 34 g/dl (31-36); Mean Corpuscular Hemoglobin 30 pg (27-31); Mean Corpuscular Volume 88 fL (80-97); Mean Platelet Volume 9 um3 (7.4-10.4); Red Blood Count 4.53 10^6/ul (4.0-5.4); Red Cell Distribution Width 14 % (10.5-15)
[2017-10-22 07:20] LABS: BUN/Creatinine Ratio 19.5 (8-20); Blood Urea Nitrogen 17 mg/dL (6-24); CO2 Carbon Dioxide 22 mmol/L (22-32); Calcium 9.1 mg/dL (8.6-10.3); Chloride 107 mmol/L (101-111); EGFR African American 84.8 (>60); Glucose 109 mg/dL (70-100); Sodium 137 mmol/L (133-145)
[2017-10-22 07:39] LABS: Anion Gap 8 mmol/L (2-11)
[2017-10-22] MEDS ORDERED: Atorvastatin* 10 MG TAB PO SCH ×2 (09:00→17:00)
[2017-10-22] MEDS: FLUoxetine CAP* 20 MG PO SCH (09:20)
[2017-10-22] MEDS: Aspirin Low Dose CHEW TAB* 81 MG PO SCH (09:20)
[2017-10-22] MEDS: Allopurinol TAB* 100 MG PO SCH (09:20)
--- NOTE | 2017-10-22 10:26 | RAD ---
Indication: LEFT ankle pain post fall yesterday. Comparison: No relevant prior exams available on the [facility] for comparison. Technique: AP and lateral views LEFT ankle. Report: Grossly nondisplaced distal metaphyseal fracture of the fibula terminating inferiorly at the level of the ankle mortise. No additional fracture evident. Congruent ankle mortise. Talocrural joint effusion. Diffuse soft tissue swelling. Small Achilles tendon insertion and plantar fascia origin bone spurs. IMPRESSION: Wilkins type B fracture pattern lateral malleolus.
[2017-10-22] MEDS: Aspirin TAB* 325 MG PO SCH (11:25)
--- NOTE | 2017-10-22 13:39 | PN ---
Subjective Date of Service: 10/22/17 Interval History: Walked a little with PT. Little pain in L ankle. Objective Active Medications: Acetaminophen (Tylenol Tab*) 650 mg PO Q4H PRN PRN Reason: FEVER/PAIN Allopurinol (Zyloprim Tab*) 100 mg PO DAILY [facility] Last Admin: 10/22/17 09:20 Dose: 100 mg Aspirin (Aspirin Tab*) 325 mg PO DAILY [facility] Last Admin: 10/22/17 11:25 Dose: 325 mg Atorvastatin Calcium (Lipitor*) 10 mg PO 1700 [facility] Fluoxetine HCl (Prozac Cap*) 20 mg PO DAILY [facility] Last Admin: 10/22/17 09:20 Dose: 20 mg Hydralazine HCl (Apresoline Iv*) 5 mg IV SLOW PU Q6H PRN PRN Reason: BLOOD PRESSURE Last Admin: 10/20/17 16:14 Dose: 5 mg Ondansetron HCl (Zofran Inj*) 4 mg IV Q6H PRN PRN Reason: NAUSEA Last Admin: 10/20/17 15:57 Dose: 4 mg Vital Signs 10/21/17 10/21/17 10/21/17 13:40 14:00 15:00 Temperature 100.1 F Pulse Rate 68 66 Respiratory 12 17 Rate Blood Pressure 166/78 180/77 (mmHg) O2 Sat by Pulse 100 100 Oximetry 10/21/17 10/21/17 10/21/17 16:00 16:15 17:00 Temperature 99.2 F 97.4 F Pulse Rate 71 65 Respiratory 15 16 Rate Blood Pressure 170/83 190/65 (mmHg) O2 Sat by Pulse 98 98 Oximetry 10/21/17 10/21/17 10/21/17 19:50 20:00 21:10 Temperature 99.1 F 98.9 F Pulse Rate 68 69 Respiratory 18 20 20 Rate Blood Pressure 172/75 164/62 (mmHg) O2 Sat by Pulse 97 96 96 Oximetry 10/21/17 10/21/17 10/21/17 21:36 22:13 22:37 Temperature 98.9 F 99.1 F 98.8 F Pulse Rate 75 69 71 Respiratory 18 18 18 Rate Blood Pressure 168/68 165/77 177/79 (mmHg) O2 Sat by Pulse 98 98 98 Oximetry 10/22/17 10/22/17 10/22/17 00:34 05:03 05:05 Temperature 98.9 F 98.9 F 98.8 F Pulse Rate 73 75 73 Respiratory 16 18 18 Rate Blood Pressure 161/90 171/75 169/85 (mmHg) O2 Sat by Pulse 96 99 100 Oximetry 10/22/17 10/22/17 07:23 08:00 Temperature 98.5 F Pulse Rate 66 Respiratory 20 16 Rate Blood Pressure 166/74 (mmHg) O2 Sat by Pulse 97 97 Oximetry Oxygen Devices in Use Now: None Appearance: Alert, in a chair. In fair spirits. Looks comfortable. Eyes: No Scleral Icterus Respiratory: Symmetrical Chest Expansion and Respiratory Effort, Clear to Auscultation, Clear to Percussion Cardiovascular: NL Sounds; No Murmurs; No JVD, RRR, No Edema, - Extremities: No Edema, No Clubbing, Cyanosis, - - L ankle not swollen or deformed. Mild tenderness. Skin: No Rash or Ulcers, No Nodules or Sclerosis, - Neurological: Alert and Oriented x 3, NL Sensation - L facial weakness. 0/5 L hand lay out helper, no L foot dorsiflexion. Result Diagrams: 10/22/17 06:46 10/22/17 08:14 Additional Lab and Data: Lab Results 10/20/17 10/20/17 10/20/17 Range/Units 12:05 12:05 12:05 WBC 10.1 (3.5-10.8) 10^3/ul RBC 5.03 (4.0-5.4) 10^6/ul Hgb 15.0 (12.0-16.0) g/dl Hct 44 (35-47) % MCV 88 (80-97) fL MCH 30 (27-31) pg MCHC 34 (31-36) g/dl RDW 13 (10.5-15) % Plt Count 218 (150-450) 10^3/ul MPV 8 (7.4-10.4) um3 Neut % (Auto) 80.7 (38-83) % Lymph % (Auto) 13.3 L (25-47) % Motley % (Auto) 4.5 (1-9) % Eos % (Auto) 0.8 (0-6) % Baso % (Auto) 0.7 (0-2) % Absolute Neuts (auto) 8.1 H (1.5-7.7) 10^3/ul Absolute Lymphs (auto) 1.3 (1.0-4.8) 10^3/ul Absolute Monos (auto) 0.4 (0-0.8) 10^3/ul Absolute Eos (auto) 0.1 (0-0.6) 10^3/ul Absolute Basos (auto) 0.1 (0-0.2) 10^3/ul Absolute Nucleated RBC 0.01 10^3/ul Nucleated RBC % 0.1 INR (Anticoag Therapy) 0.84 L (0.89-1.11) APTT 24.5 L (26.0-36.3) seconds Sodium 138 (133-145) mmol/L Potassium 3.9 (3.5-5.0) mmol/L Chloride 103 (101-111) mmol/L Carbon Dioxide 26 (22-32) mmol/L Anion Gap 9 (2-11) mmol/L BUN 19 (6-24) mg/dL Creatinine 0.86 (0.51-0.95) mg/dL Est GFR ( Amer) 86.0 (>60) Est GFR (Non-Af Amer) 66.9 (>60) BUN/Creatinine Ratio 22.1 H (8-20) Glucose 142 H (70-100) mg/dL Lactic Acid (0.5-2.0) mmol/L Calcium 9.5 (8.6-10.3) mg/dL Total Bilirubin 0.40 (0.2-1.0) mg/dL AST 20 (13-39) U/L ALT 18 (7-52) U/L Alkaline Phosphatase 87 (34-104) U/L Troponin I 0.00 (<0.04) ng/mL Total Protein 7.1 (6.4-8.9) g/dL Albumin 4.1 (3.2-5.2) g/dL Globulin 3.0 (2-4) g/dL Albumin/Globulin Ratio 1.4 (1-3) Triglycerides 212 mg/dL Cholesterol 264 mg/dL LDL Cholesterol 174 mg/dL HDL Cholesterol 48.1 mg/dL Blood Type Antibody Screen 10/20/17 10/20/17 Range/Units 12:05 12:05 WBC (3.5-10.8) 10^3/ul RBC (4.0-5.4) 10^6/ul Hgb (12.0-16.0) g/dl Hct (35-47) % MCV (80-97) fL MCH (27-31) pg MCHC (31-36) g/dl RDW (10.5-15) % Plt Count (150-450) 10^3/ul MPV (7.4-10.4) um3 Neut % (Auto) (38-83) % Lymph % (Auto) (25-47) % Motley % (Auto) (1-9) % Eos % (Auto) (0-6) % Baso % (Auto) (0-2) % Absolute Neuts (auto) (1.5-7.7) 10^3/ul Absolute Lymphs (auto) (1.0-4.8) 10^3/ul Absolute Monos (auto) (0-0.8) 10^3/ul Absolute Eos (auto) (0-0.6) 10^3/ul Absolute Basos (auto) (0-0.2) 10^3/ul Absolute Nucleated RBC 10^3/ul Nucleated RBC % INR (Anticoag Therapy) (0.89-1.11) APTT (26.0-36.3) seconds Sodium (133-145) mmol/L Potassium (3.5-5.0) mmol/L Chloride (101-111) mmol/L Carbon Dioxide (22-32) mmol/L Anion Gap (2-11) mmol/L BUN (6-24) mg/dL Creatinine (0.51-0.95) mg/dL Est GFR ( Amer) (>60) Est GFR (Non-Af Amer) (>60) BUN/Creatinine Ratio (8-20) Glucose (70-100) mg/dL Lactic Acid 1.2 (0.5-2.0) mmol/L Calcium (8.6-10.3) mg/dL Total Bilirubin (0.2-1.0) mg/dL AST (13-39) U/L ALT (7-52) U/L Alkaline Phosphatase (34-104) U/L Troponin I (<0.04) ng/mL Total Protein (6.4-8.9) g/dL Albumin (3.2-5.2) g/dL Globulin (2-4) g/dL Albumin/Globulin Ratio (1-3) Triglycerides mg/dL Cholesterol mg/dL LDL Cholesterol mg/dL HDL Cholesterol mg/dL Blood Type A Positive Antibody Screen Negative Microbiology and Other Data: Microbiology 10/20/17 15:56 Nasal Screen MRSA (PCR)(ELYSE) - Final Nasal Mrsa Negative Assess/Plan/Problems-Billing Assessment: - Patient Problems (1) Right sided cerebral infarction Current Visit: Yes Status: Acute Code(s): I63.9 - CEREBRAL INFARCTION, UNSPECIFIED SNOMED Code(s): 037487709 Comment: S/P TPA. Starting ASA and statin 10/22. Increase atorvastatin to 20 mg if initial 10 mg dose tolerated. Pt recalls that her whole body swelled after a week or so, NOT tongue or throat swelling. (2) Gout Current Visit: Yes Status: Acute Code(s): M10.9 - GOUT, UNSPECIFIED SNOMED Code(s): 70650988 Comment: Continue allopurinol pending swallow eval. (3) Hyperlipidemia Current Visit: Yes Status: Acute Code(s): E78.5 - HYPERLIPIDEMIA, UNSPECIFIED SNOMED Code(s): 71730040 Comment: Patient states she had total body swelling after one or a few doses of an unknown statin about 10 yrs ago. Trial atorvastatin 10 mg 10/22 in AM. Ezetimibe on hold. (4) Fibromyalgia Current Visit: Yes Status: Acute Code(s): M79.7 - FIBROMYALGIA SNOMED Code (s): 248923687 Comment: Continue fluoxetine. (5) Mediastinal mass Current Visit: Yes Status: Acute Comment: 2.8 cm anterior mediastinal mass on CTA head 10/20. Needs outpt w/up.
[2017-10-22] MEDS ORDERED: HYDROcodone/ACETAMIN 5-325 MG* 1 TAB PO PRN (14:58)
--- NOTE | 2017-10-23 00:32 | CONS ---
CONSULTATION REPORT: DATE OF CONSULT / DICTATION: 10/22/17 PROVIDER: Dr. Pierre. (DICTATED BY GORDO BRUNO) CONSULTATION FOR: Orthopedics. CHIEF COMPLAINT: Left ankle pain. HISTORY OF PRESENT ILLNESS: Ms. Puri is a very pleasant 62-year-old female with a history of gout, hyperlipidemia, fibromyalgia, and uterine cancer, who presented to the ER on 10/20/17, with new onset of left-sided weakness after taking her shoes off. She was seen by Neurology, was felt that she had an acute stroke and underwent tPA infusion. The patient noted this morning while attempting to ambulate that she was having pain in her left ankle. An x-ray was obtained, which showed a Wilkins type B fracture pattern of the lateral malleolus. The patient states that overall she has been feeling well. She has significant left-sided weakness, which had not changed over the past 12 hours. She states that she was ambulatory on her ankle this morning, which increased her pain to approximately an 8/10 with rest. The pain is approximately 0/10. She does note some increased swelling of her left ankle. She denies any ankle injuries or problems that she has had in the past. She states while walking, the pain is mainly lateral. PAST MEDICAL HISTORY: 1. Gout. 2. Hyperlipidemia. 3. Fibromyalgia. 4. History of uterine cancer. PAST SURGICAL HISTORY: 1. Total abdominal hysterectomy with bilateral salpingo-oophorectomy. 2. Tubal ligation. MEDICATIONS: Current in-house medications include: 1. Acetaminophen 600 mg p.o. q.4 hours p.r.n. 2. Zofran 4 mg IV q.6 hours p.r.n. 3. Hydralazine 5 mg IV q.6 hours p.r.n. 4. Allopurinol 100 mg p.o. daily. 5. Prozac 20 mg p.o. daily. 6. Aspirin 325 mg p.o. daily. 7. [place] 5/325 mg 1 tablet p.o. q.4 hours. 8. Atorvastatin 10 mg p.o. daily at 5 p.m. ALLERGIES: NABUMETONE. FAMILY MEDICAL HISTORY: No family history of cancer, stroke, or GA. No history of diabetes or blood pressure. SOCIAL HISTORY: No smoking. No drinking. PHYSICAL EXAM: General: Well-appearing, no acute distress. Alert and oriented. Sitting in bed comfortably. Extremities: Posterior tibial pulses 2+ bilaterally. Dorsalis pedis pulses +2 bilaterally and moderate edema noted in the left lower extremity, none noted in right lower extremity. Positive dorsiflexion, plantar flexion with good strength in the right lower extremity. The patient is unable to dorsi flex or plantarflex in the left lower extremity. Bilateral knees with no pain to palpation. Range of motion of right knee 0 to greater than 90 degrees of the left knee. Extension to approximately 30 degrees, flexion to greater than 90 degrees. Negative Homans' sign bilaterally. Tenderness to both the lateral and medial malleoli without significant tenderness throughout the remainder of the foot. Positive tenderness with passive dorsiflexion and plantar flexion of the left ankle. Left upper extremity with minimal movements as well. DIAGNOSTIC STUDIES/LAB DATA: White blood cell count 12.0, H and H 13.5 and 40. Imaging: Ankle x-ray obtained 10/22/17 shows Wilkins type B fracture pattern in the lateral malleolus of the left ankle. ASSESSMENT: Left ankle fracture. PLAN: The patient will be placed into a splint and should be nonweightbearing on the left lower extremity. She is doing well with her current pain regimen. We will continue to follow with the patient. GORDO BRUNO [id number]/[facility] #: [id number] MTDD
[2017-10-23] MEDS ORDERED: Magnesium Hydroxide LIQ* 30 ML UDC PO ONE (07:40)
--- NOTE | 2017-10-23 07:47 | PN ---
Subjective Date of Service: 10/23/17 Interval History: Pt feels her L side is a little stronger. SHe states no BM since admission. Appetite OK. Objective Active Medications: Acetaminophen (Tylenol Tab*) 650 mg PO Q4H PRN PRN Reason: FEVER/PAIN Hydrocodone Bitart/Acetaminophen ([place] 5-325 Tab*) 1 tab PO Q4H PRN PRN Reason: PAIN Allopurinol (Zyloprim Tab*) 100 mg PO DAILY [facility] Last Admin: 10/22/17 09:20 Dose: 100 mg Aspirin (Aspirin Tab*) 325 mg PO DAILY [facility] Last Admin: 10/22/17 11:25 Dose: 325 mg Atorvastatin Calcium (Lipitor*) 10 mg PO 1700 [facility] Last Admin: 10/22/17 17:36 Dose: 10 mg Fluoxetine HCl (Prozac Cap*) 20 mg PO DAILY [facility] Last Admin: 10/22/17 09:20 Dose: 20 mg Hydralazine HCl (Apresoline Iv*) 5 mg IV SLOW PU Q6H PRN PRN Reason: BLOOD PRESSURE Last Admin: 10/20/17 16:14 Dose: 5 mg Magnesium Citrate (Citrate Of Magnesia*) 300 ml PO ONCE PRN PRN Reason: CONSTIPATION Magnesium Hydroxide (Milk Of Magnesia Liq*) 60 ml PO ONCE ONE Stop: 10/23/17 07:41 Ondansetron HCl (Zofran Inj*) 4 mg IV Q6H PRN PRN Reason: NAUSEA Last Admin: 10/20/17 15:57 Dose: 4 mg Polyethylene Glycol/Electrolytes (Miralax*) 17 gm PO DAILY PRN PRN Reason: CONSTIPATION Vital Signs 10/22/17 10/22/17 10/22/17 08:00 11:35 15:45 Temperature 97.9 F 98.5 F Pulse Rate 62 66 Respiratory 16 16 18 Rate Blood Pressure 153/74 167/79 (mmHg) O2 Sat by Pulse 97 100 100 Oximetry 10/22/17 10/22/17 10/22/17 19:36 20:00 23:33 Temperature 98.3 F 98.7 F Pulse Rate 78 72 Respiratory 18 18 20 Rate Blood Pressure 155/78 163/73 (mmHg) O2 Sat by Pulse 98 98 98 Oximetry 10/23/17 04:03 Temperature 98.5 F Pulse Rate 65 Respiratory 16 Rate Blood Pressure 171/82 (mmHg) O2 Sat by Pulse 99 Oximetry Oxygen Devices in Use Now: None Appearance: Alert, partly up in bed. In good spirits. Looks comfortable. Eyes: No Scleral Icterus Extremities: No Edema, No Clubbing, Cyanosis, - - L ankle brace in place. Skin: No Rash or Ulcers, No Nodules or Sclerosis, - Neurological: Alert and Oriented x 3, NL Sensation - L attendant lodging facilities 2-3/5. Result Diagrams: 10/22/17 06:46 10/22/17 08:14 Additional Lab and Data: Lab Results 10/20/17 10/20/17 10/20/17 Range/Units 12:05 12:05 12:05 WBC 10.1 (3.5-10.8) 10^3/ul RBC 5.03 (4.0-5.4) 10^6/ul Hgb 15.0 (12.0-16.0) g/dl Hct 44 (35-47) % MCV 88 (80-97) fL MCH 30 (27-31) pg MCHC 34 (31-36) g/dl RDW 13 (10.5-15) % Plt Count 218 (150-450) 10^3/ul MPV 8 (7.4-10.4) um3 Neut % (Auto) 80.7 (38-83) % Lymph % (Auto) 13.3 L (25-47) % Baker % (Auto) 4.5 (1-9) % Eos % (Auto) 0.8 (0-6) % Baso % (Auto) 0.7 (0-2) % Absolute Neuts (auto) 8.1 H (1.5-7.7) 10^3/ul Absolute Lymphs (auto) 1.3 (1.0-4.8) 10^3/ul Absolute Monos (auto) 0.4 (0-0.8) 10^3/ul Absolute Eos (auto) 0.1 (0-0.6) 10^3/ul Absolute Basos (auto) 0.1 (0-0.2) 10^3/ul Absolute Nucleated RBC 0.01 10^3/ul Nucleated RBC % 0.1 INR (Anticoag Therapy) 0.84 L (0.89-1.11) APTT 24.5 L (26.0-36.3) seconds Sodium 138 (133-145) mmol/L Potassium 3.9 (3.5-5.0) mmol/L Chloride 103 (101-111) mmol/L Carbon Dioxide 26 (22-32) mmol/L Anion Gap 9 (2-11) mmol/L BUN 19 (6-24) mg/dL Creatinine 0.86 (0.51-0.95) mg/dL Est GFR ( Amer) 86.0 (>60) Est GFR (Non-Af Amer) 66.9 (>60) BUN/Creatinine Ratio 22.1 H (8-20) Glucose 142 H (70-100) mg/dL Lactic Acid (0.5-2.0) mmol/L Calcium 9.5 (8.6-10.3) mg/dL Total Bilirubin 0.40 (0.2-1.0) mg/dL AST 20 (13-39) U/L ALT 18 (7-52) U/L Alkaline Phosphatase 87 (34-104) U/L Troponin I 0.00 (<0.04) ng/mL Total Protein 7.1 (6.4-8.9) g/dL Albumin 4.1 (3.2-5.2) g/dL Globulin 3.0 (2-4) g/dL Albumin/Globulin Ratio 1.4 (1-3) Triglycerides 212 mg/dL Cholesterol 264 mg/dL LDL Cholesterol 174 mg/dL HDL Cholesterol 48.1 mg/dL Blood Type Antibody Screen 10/20/17 10/20/17 Range/Units 12:05 12:05 WBC (3.5-10.8) 10^3/ul RBC (4.0-5.4) 10^6/ul Hgb (12.0-16.0) g/dl Hct (35-47) % MCV (80-97) fL MCH (27-31) pg MCHC (31-36) g/dl RDW (10.5-15) % Plt Count (150-450) 10^3/ul MPV (7.4-10.4) um3 Neut % (Auto) (38-83) % Lymph % (Auto) (25-47) % Baker % (Auto) (1-9) % Eos % (Auto) (0-6) % Baso % (Auto) (0-2) % Absolute Neuts (auto) (1.5-7.7) 10^3/ul Absolute Lymphs (auto) (1.0-4.8) 10^3/ul Absolute Monos (auto) (0-0.8) 10^3/ul Absolute Eos (auto) (0-0.6) 10^3/ul Absolute Basos (auto) (0-0.2) 10^3/ul Absolute Nucleated RBC 10^3/ul Nucleated RBC % INR (Anticoag Therapy) (0.89-1.11) APTT (26.0-36.3) seconds Sodium (133-145) mmol/L Potassium (3.5-5.0) mmol/L Chloride (101-111) mmol/L Carbon Dioxide (22-32) mmol/L Anion Gap (2-11) mmol/L BUN (6-24) mg/dL Creatinine (0.51-0.95) mg/dL Est GFR ( Amer) (>60) Est GFR (Non-Af Amer) (>60) BUN/Creatinine Ratio (8-20) Glucose (70-100) mg/dL Lactic Acid 1.2 (0.5-2.0) mmol/L Calcium (8.6-10.3) mg/dL Total Bilirubin (0.2-1.0) mg/dL AST (13-39) U/L ALT (7-52) U/L Alkaline Phosphatase (34-104) U/L Troponin I (<0.04) ng/mL Total Protein (6.4-8.9) g/dL Albumin (3.2-5.2) g/dL Globulin (2-4) g/dL Albumin/Globulin Ratio (1-3) Triglycerides mg/dL Cholesterol mg/dL LDL Cholesterol mg/dL HDL Cholesterol mg/dL Blood Type A Positive Antibody Screen Negative Microbiology and Other Data: Microbiology 10/20/17 15:56 Nasal Screen MRSA (PCR)(ELYSE) - Final Nasal Mrsa Negative Assess/Plan/Problems-Billing Assessment: - Patient Problems (1) Right sided cerebral infarction Current Visit: Yes Status: Acute Code(s): I63.9 - CEREBRAL INFARCTION, UNSPECIFIED SNOMED Code(s): 572688943 Comment: Improvement noted 10/23/17. S/P TPA. Starting ASA and statin 10/22. Increase atorvastatin to 20 mg 10/23 1700 hrs. Pt recalls that her whole body swelled after a week or so, NOT tongue or throat swelling. (2) Gout Current Visit: Yes Status: Acute Code(s): M10.9 - GOUT, UNSPECIFIED SNOMED Code(s): 94967436 Comment: Continue allopurinol pending swallow eval. (3) Hyperlipidemia Current Visit: Yes Status: Acute Code(s): E78.5 - HYPERLIPIDEMIA, UNSPECIFIED SNOMED Code(s): 84957428 Comment: Patient states she had total body swelling after one or a few doses of an unknown statin about 10 yrs ago. Trial atorvastatin 10 mg 10/22 in AM. Ezetimibe on hold. (4) Fibromyalgia Current Visit: Yes Status: Acute Code(s): M79.7 - FIBROMYALGIA SNOMED Code (s): 099712842 Comment: Continue fluoxetine. (5) Mediastinal mass Current Visit: Yes Status: Acute Comment: 2.8 cm anterior mediastinal mass on CTA head 10/20. Needs outpt w/up. (6) Closed left ankle fracture Current Visit: Yes Status: Acute Code(s): S82.892A - OTH FRACTURE OF LEFT LOWER LEG, INIT FOR CLOS FX SNOMED Code(s): 67475211 Comment: Due to fall when patient got out of bed unsupervised. Ortho consult appreciated. NWB status for now.
--- NOTE | 2017-10-23 07:56 | RAD ---
INDICATION: Cerebrovascular accident. COMPARISON: CT of the brain October 20, 2017 and MRI the brain October 21, 2017 TECHNIQUE: Contiguous axial sections of the brain were obtained from the skull base to the vertex without contrast. FINDINGS: The ventricles, cisterns and sulci exhibit mild symmetrical involutional changes. At the right osmar there is a focal hypodensity measuring 1.3 x 1.9 cm in the axial plane. This was not seen on the previous CT examination. There is moderate periventricular and subcortical white matter hypoattenuation most consistent with chronic microvascular disease. The roblero-white matter differentiation is adequately maintained and there is no sulcal effacement. No significant focal abnormality or mass effect is present. There is no evidence for intracranial hemorrhage. No significant focal osseous abnormality is present. The visualized portion of the paranasal sinuses and mastoid air cells appear clear. IMPRESSION: 1. There is a focal hypodensity at the right osmar measuring 1.3 x 1.9 cm in the axial plane. Please correlate to signs or symptoms of pontine infarct. 2. Evidence of chronic microvascular disease similar in appearance to the prior CT of the brain. 3. No acute intracranial hemorrhage is identified. Findings reported Dr. Lan over the telephone at 0751 hours on October 23, 2017.
[2017-10-23] MEDS ORDERED: Polyethylene Glycol 3350* 17 GM PACKET ONE (08:49)
[2017-10-23] MEDS: Allopurinol TAB* 100 MG PO SCH (08:53)
[2017-10-23] MEDS: FLUoxetine CAP* 20 MG PO SCH (08:53)
[2017-10-23] MEDS: Aspirin TAB* 325 MG PO SCH (08:53)
--- NOTE | 2017-10-23 11:13 | PN ---
Progress Note - Progress Note Date of Service: 10/23/17 SOAP: Subjective: PT is doing well. She has noticed increased strength in her left leg. Pain is controlled. Denies F/C, CP/SOB or calf pain Objective: PE- 62 y/o WDWN F NAD, sitting comfortably in chair LLE- splint c/d/i, calf NT, able to F/E toes, SILT Vital Signs Temp Pulse Resp BP Pulse Ox 98.5 F 67 16 154/73 97 10/23/17 07:47 10/23/17 07:47 10/23/17 07:49 10/23/17 07:47 10/23/17 07:49 Assessment: non op Left ankle fx Plan: Keep splint dry and intact NWB LLE cont pain management admitted for multiple medical comorbidities including AMI will cont to follow
--- NOTE | 2017-10-23 13:51 | PN ---
NEUROLOGICAL FOLLOWUP: DATE OF SERVICE / DICTATION: 10/22/17 HISTORY: Cally had a stroke leaving her with left hemiparesis. Following tPA administration, her stroke got worse overnight following admission, but it has been stable. Since then she has no other complaints other than her hemiparesis. No numbness, headache, visual changes. No denial of illness. She is on her aspirin 325, Lipitor 10 mg, which will be increased if she tolerates this and rehab is in the process of evaluating her. PHYSICAL EXAMINATION: Temperature 97.9, pulse 62, respirations 16, blood pressure 153/74. She is alert and oriented with normal speech and comprehension. She has a left facial weakness. She has significant weakness in the left side of her body. She can move her left arm against gravity slightly. She has 4/5 strength in her left leg and has needed assistance with walking. Chest is clear. Cardiovascular is regular rate and rhythm without murmur. Abdomen is soft with positive bowel sounds. 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 She is on her aspirin and will be getting rehabilitation. She is on statin, which will be increased. No further intervention is needed at this time. Dr. Genao is aware of her case if she has further complication. [id number]/[facility] #: [id number] [facility] CENTERJose
[2017-10-23] MEDS ORDERED: Magnesium CITRATE* 300 ML BTL PO PRN (14:00)
[2017-10-23] MEDS: Atorvastatin* 20 MG TAB PO SCH (16:58)
[2017-10-24] MEDS ORDERED: Polyethylene Glycol 3350* 17 GM PACKET PO PRN (09:00)
[2017-10-24] MEDS: Aspirin TAB* 325 MG PO SCH (09:05)
[2017-10-24] MEDS: Allopurinol TAB* 100 MG PO SCH (09:05)
[2017-10-24] MEDS: FLUoxetine CAP* 20 MG PO SCH (09:05)
--- NOTE | 2017-10-24 10:22 | PN ---
Progress Note - Progress Note Date of Service: 10/24/17 SOAP: Subjective: Pt is doing well. Minimal pain. Splint is intact. Denies F/C, SOB/CP or calf pain Objective: PE: 62 y/o WDWN F NAD, A&O, sitting comfortably in chair LLE- splint c/d/i, able F/E knee, sensation intact to light touch distally Vital Signs Temp Pulse Resp BP Pulse Ox 97.6 F 61 18 174/58 98 10/24/17 07:34 10/24/17 07:34 10/24/17 08:00 10/24/17 07:34 10/24/17 08:00 Assessment: non op Left ankle fx Plan: Keep splint dry and intact NWB LLE cont pain management admitted for multiple medical comorbidities including CVA will cont to follow
--- NOTE | 2017-10-24 10:55 | PN ---
Subjective Date of Service: 10/24/17 Interval History: NO new c/o. Virtually no pain from ankle fx. She states it took 2 people to get her in a chair. Objective Active Medications: Acetaminophen (Tylenol Tab*) 650 mg PO Q4H PRN PRN Reason: FEVER/PAIN Hydrocodone Bitart/Acetaminophen ([place] 5-325 Tab*) 1 tab PO Q4H PRN PRN Reason: PAIN Allopurinol (Zyloprim Tab*) 100 mg PO DAILY [facility] Last Admin: 10/24/17 09:05 Dose: 100 mg Aspirin (Aspirin Tab*) 325 mg PO DAILY [facility] Last Admin: 10/24/17 09:05 Dose: 325 mg Atorvastatin Calcium (Lipitor*) 20 mg PO 1700 [facility] Last Admin: 10/23/17 16:58 Dose: 20 mg Fluoxetine HCl (Prozac Cap*) 20 mg PO DAILY [facility] Last Admin: 10/24/17 09:05 Dose: 20 mg Hydralazine HCl (Apresoline Iv*) 5 mg IV SLOW PU Q6H PRN PRN Reason: BLOOD PRESSURE Last Admin: 10/20/17 16:14 Dose: 5 mg Ondansetron HCl (Zofran Inj*) 4 mg IV Q6H PRN PRN Reason: NAUSEA Last Admin: 10/20/17 15:57 Dose: 4 mg Polyethylene Glycol/Electrolytes (Miralax*) 17 gm PO DAILY PRN PRN Reason: CONSTIPATION Last Admin: 10/23/17 08:53 Dose: 17 gm Vital Signs 10/23/17 10/23/17 10/23/17 16:01 16:05 19:44 Temperature 97.4 F 98.0 F Pulse Rate 71 62 Respiratory 16 16 Rate Blood Pressure 144/90 163/70 (mmHg) O2 Sat by Pulse 99 100 Oximetry 10/23/17 10/23/17 10/24/17 20:00 23:47 07:01 Temperature 98.4 F 97.4 F Pulse Rate 65 72 Respiratory 16 18 16 Rate Blood Pressure 172/66 155/70 (mmHg) O2 Sat by Pulse 100 97 96 Oximetry 10/24/17 10/24/17 07:34 08:00 Temperature 97.6 F Pulse Rate 61 Respiratory 18 18 Rate Blood Pressure 174/58 (mmHg) O2 Sat by Pulse 98 98 Oximetry Oxygen Devices in Use Now: None Appearance: Alert, in a chair. In good spirits. Looks comfortable. Eyes: No Scleral Icterus Extremities: No Edema, No Clubbing, Cyanosis, - - L ankle splint in place. Skin: No Rash or Ulcers, No Nodules or Sclerosis, - Neurological: Alert and Oriented x 3, NL Sensation - L facial palsy, L hand and wrist no motion. L leg 3-4/5 knee flexion. Result Diagrams: 10/22/17 06:46 10/22/17 08:14 Additional Lab and Data: Lab Results 10/20/17 10/20/17 10/20/17 Range/Units 12:05 12:05 12:05 WBC 10.1 (3.5-10.8) 10^3/ul RBC 5.03 (4.0-5.4) 10^6/ul Hgb 15.0 (12.0-16.0) g/dl Hct 44 (35-47) % MCV 88 (80-97) fL MCH 30 (27-31) pg MCHC 34 (31-36) g/dl RDW 13 (10.5-15) % Plt Count 218 (150-450) 10^3/ul MPV 8 (7.4-10.4) um3 Neut % (Auto) 80.7 (38-83) % Lymph % (Auto) 13.3 L (25-47) % [place]ick[place] % (Auto) 4.5 (1-9) % Eos % (Auto) 0.8 (0-6) % Baso % (Auto) 0.7 (0-2) % Absolute Neuts (auto) 8.1 H (1.5-7.7) 10^3/ul Absolute Lymphs (auto) 1.3 (1.0-4.8) 10^3/ul Absolute Monos (auto) 0.4 (0-0.8) 10^3/ul Absolute Eos (auto) 0.1 (0-0.6) 10^3/ul Absolute Basos (auto) 0.1 (0-0.2) 10^3/ul Absolute Nucleated RBC 0.01 10^3/ul Nucleated RBC % 0.1 INR (Anticoag Therapy) 0.84 L (0.89-1.11) APTT 24.5 L (26.0-36.3) seconds Sodium 138 (133-145) mmol/L Potassium 3.9 (3.5-5.0) mmol/L Chloride 103 (101-111) mmol/L Carbon Dioxide 26 (22-32) mmol/L Anion Gap 9 (2-11) mmol/L BUN 19 (6-24) mg/dL Creatinine 0.86 (0.51-0.95) mg/dL Est GFR ( Amer) 86.0 (>60) Est GFR (Non-Af Amer) 66.9 (>60) BUN/Creatinine Ratio 22.1 H (8-20) Glucose 142 H (70-100) mg/dL Lactic Acid (0.5-2.0) mmol/L Calcium 9.5 (8.6-10.3) mg/dL Total Bilirubin 0.40 (0.2-1.0) mg/dL AST 20 (13-39) U/L ALT 18 (7-52) U/L Alkaline Phosphatase 87 (34-104) U/L Troponin I 0.00 (<0.04) ng/mL Total Protein 7.1 (6.4-8.9) g/dL Albumin 4.1 (3.2-5.2) g/dL Globulin 3.0 (2-4) g/dL Albumin/Globulin Ratio 1.4 (1-3) Triglycerides 212 mg/dL Cholesterol 264 mg/dL LDL Cholesterol 174 mg/dL HDL Cholesterol 48.1 mg/dL Blood Type Antibody Screen 10/20/17 10/20/17 Range/Units 12:05 12:05 WBC (3.5-10.8) 10^3/ul RBC (4.0-5.4) 10^6/ul Hgb (12.0-16.0) g/dl Hct (35-47) % MCV (80-97) fL MCH (27-31) pg MCHC (31-36) g/dl RDW (10.5-15) % Plt Count (150-450) 10^3/ul MPV (7.4-10.4) um3 Neut % (Auto) (38-83) % Lymph % (Auto) (25-47) % [place] % (Auto) (1-9) % Eos % (Auto) (0-6) % Baso % (Auto) (0-2) % Absolute Neuts (auto) (1.5-7.7) 10^3/ul Absolute Lymphs (auto) (1.0-4.8) 10^3/ul Absolute Monos (auto) (0-0.8) 10^3/ul Absolute Eos (auto) (0-0.6) 10^3/ul Absolute Basos (auto) (0-0.2) 10^3/ul Absolute Nucleated RBC 10^3/ul Nucleated RBC % INR (Anticoag Therapy) (0.89-1.11) APTT (26.0-36.3) seconds Sodium (133-145) mmol/L Potassium (3.5-5.0) mmol/L Chloride (101-111) mmol/L Carbon Dioxide (22-32) mmol/L Anion Gap (2-11) mmol/L BUN (6-24) mg/dL Creatinine (0.51-0.95) mg/dL Est GFR ( Amer) (>60) Est GFR (Non-Af Amer) (>60) BUN/Creatinine Ratio (8-20) Glucose (70-100) mg/dL Lactic Acid 1.2 (0.5-2.0) mmol/L Calcium (8.6-10.3) mg/dL Total Bilirubin (0.2-1.0) mg/dL AST (13-39) U/L ALT (7-52) U/L Alkaline Phosphatase (34-104) U/L Troponin I (<0.04) ng/mL Total Protein (6.4-8.9) g/dL Albumin (3.2-5.2) g/dL Globulin (2-4) g/dL Albumin/Globulin Ratio (1-3) Triglycerides mg/dL Cholesterol mg/dL LDL Cholesterol mg/dL HDL Cholesterol mg/dL Blood Type A Positive Antibody Screen Negative Microbiology and Other Data: Microbiology 10/20/17 15:56 Nasal Screen MRSA (PCR)(ELYSE) - Final Nasal Mrsa Negative Assess/Plan/Problems-Billing Assessment: - Patient Problems (1) Right sided cerebral infarction Current Visit: Yes Status: Acute Code(s): I63.9 - CEREBRAL INFARCTION, UNSPECIFIED SNOMED Code(s): 105845362 Comment: Improvement noted 10/23/17. S/P TPA. Starting ASA and statin 10/22. Increased atorvastatin to 20 mg 10/23 1700 hrs. Pt recalls that her whole body swelled after a week or so, NOT tongue or throat swelling. Consider increasing atorvastatin to 40 mg daily on 10/26. (2) Gout Current Visit: Yes Status: Acute Code(s): M10.9 - GOUT, UNSPECIFIED SNOMED Code(s): 66731222 Comment: Continue allopurinol. (3) Hyperlipidemia Current Visit: Yes Status: Acute Code(s): E78.5 - HYPERLIPIDEMIA, UNSPECIFIED SNOMED Code(s): 79622113 Comment: Patient states she had total body swelling after one or a few doses of an unknown statin about 10 yrs ago. Trial atorvastatin 10 mg 10/22 in AM. Ezetimibe on hold. (4) Fibromyalgia Current Visit: Yes Status: Acute Code(s): M79.7 - FIBROMYALGIA SNOMED Code (s): 631736907 Comment: Continue fluoxetine. (5) Mediastinal mass Current Visit: Yes Status: Acute Comment: 2.8 cm anterior mediastinal mass on CTA head 10/20. Needs outpt w/up. (6) Closed left ankle fracture Current Visit: Yes Status: Acute Code(s): S82.892A - OTH FRACTURE OF LEFT LOWER LEG, INIT FOR CLOS FX SNOMED Code(s): 98600277 Comment: Due to fall when patient got out of bed unsupervised. Ortho consult appreciated. NWB status for now.
[2017-10-24] MEDS: Atorvastatin* 20 MG TAB PO SCH (17:51)
[2017-10-25] MEDS: Aspirin TAB* 325 MG PO SCH (08:27)
[2017-10-25] MEDS: FLUoxetine CAP* 20 MG PO SCH (08:29)
[2017-10-25] MEDS: Allopurinol TAB* 100 MG PO SCH (08:29)
--- NOTE | 2017-10-25 12:25 | PN ---
Progress Note - Progress Note Date of Service: 10/25/17 SOAP: Subjective: []Patient seen at bedside. She has no pain of her ankle, no chest pain, shortness of breath or calf pain. Objective: [] Vital Signs Temp 97.4 F 10/25/17 07:41 Pulse 56 10/25/17 07:41 Resp 18 10/25/17 08:00 BP 157/73 10/25/17 07:41 Pulse Ox 98 10/25/17 08:00 Intake & Output 10/24/17 10/25/17 10/25/17 18:59 06:59 18:59 Intake Total 720 240 Output Total 0 0 0 Balance 720 240 0 Intake: Oral 720 240 Output: Urine 0 0 0 Other: # Bowel Movements 1 Estimated Stool Amount Medium # Voids 2 0 Laboratory Last Values WBC 12.0 10^3/ul (3.5-10.8) H 10/22/17 06:46 RBC 4.53 10^6/ul (4.0-5.4) 10/22/17 06:46 Hgb 13.5 g/dl (12.0-16.0) 10/22/17 06:46 Hct 40 % (35-47) 10/22/17 06:46 MCV 88 fL (80-97) 10/22/17 06:46 MCH 30 pg (27-31) 10/22/17 06:46 MCHC 34 g/dl (31-36) 10/22/17 06:46 RDW 14 % (10.5-15) 10/22/17 06:46 Plt Count 230 10^3/ul (150-450) 10/22/17 06:46 MPV 9 um3 (7.4-10.4) 10/22/17 06:46 Neut % (Auto) 71.6 % (38-83) 10/22/17 06:46 Lymph % (Auto) 19.8 % (25-47) L 10/22/17 06:46 [place] % (Auto) 6.7 % (1-9) 10/22/17 06:46 Eos % (Auto) 0.6 % (0-6) 10/22/17 06:46 Baso % (Auto) 1.3 % (0-2) 10/22/17 06:46 Absolute Neuts (auto) 8.6 10^3/ul (1.5-7.7) H 10/22/17 06:46 Absolute Lymphs (auto) 2.4 10^3/ul (1.0-4.8) 10/22/17 06:46 Absolute Monos (auto) 0.8 10^3/ul (0-0.8) 10/22/17 06:46 Absolute Eos (auto) 0.1 10^3/ul (0-0.6) 10/22/17 06:46 Absolute Basos (auto) 0.2 10^3/ul (0-0.2) 10/22/17 06:46 Absolute Nucleated RBC 0.01 10^3/ul 10/22/17 06:46 Nucleated RBC % 0.1 10/22/17 06:46 INR (Anticoag Therapy) 0.98 (0.89-1.11) 10/21/17 05:50 APTT 24.5 seconds (26.0-36.3) L 10/20/17 12:05 Sodium 137 mmol/L (133-145) 10/22/17 06:46 Potassium 3.9 mmol/L (3.5-5.0) 10/22/17 08:14 Chloride 107 mmol/L (101-111) 10/22/17 06:46 Carbon Dioxide 22 mmol/L (22-32) 10/22/17 06:46 Anion Gap 8 mmol/L (2-11) 10/22/17 06:46 BUN 17 mg/dL (6-24) 10/22/17 06:46 Creatinine 0.87 mg/dL (0.51-0.95) 10/22/17 06:46 Est GFR ( Amer) 84.8 (>60) 10/22/17 06:46 Est GFR (Non-Af Amer) 66.0 (>60) 10/22/17 06:46 BUN/Creatinine Ratio 19.5 (8-20) 10/22/17 06:46 Glucose 109 mg/dL (70-100) H 10/22/17 06:46 Hemoglobin A1c 5.8 % (4.0-5.6) H 10/21/17 05:50 Lactic Acid 1.2 mmol/L (0.5-2.0) 10/20/17 12:05 Calcium 9.1 mg/dL (8.6-10.3) 10/22/17 06:46 Total Bilirubin 0.40 mg/dL (0.2-1.0) 10/20/17 12:05 AST 20 U/L (13-39) 10/20/17 12:05 ALT 18 U/L (7-52) 10/20/17 12:05 Alkaline Phosphatase 87 U/L (34-104) 10/20/17 12:05 Troponin I 0.00 ng/mL (<0.04) 10/20/17 17:52 Total Protein 7.1 g/dL (6.4-8.9) 10/20/17 12:05 Albumin 4.1 g/dL (3.2-5.2) 10/20/17 12:05 Globulin 3.0 g/dL (2-4) 10/20/17 12:05 Albumin/Globulin Ratio 1.4 (1-3) 10/20/17 12:05 Triglycerides 185 mg/dL 10/21/17 05:50 Cholesterol 247 mg/dL 10/21/17 05:50 LDL Cholesterol 163 mg/dL 10/21/17 05:50 HDL Cholesterol 47.0 mg/dL 10/21/17 05:50 Urine Color Straw 10/20/17 20:10 Urine Appearance Clear 10/20/17 20:10 Urine pH 6.0 (5-9) 10/20/17 20:10 Ur Specific [place] 1.030 (1.010-1.030) 10/20/17 20:10 Urine Protein Negative (Negative) 10/20/17 20:10 Urine Ketones 1+ (Negative) H 10/20/17 20:10 Urine Blood 1+ (Negative) H 10/20/17 20:10 Urine Nitrate Negative (Negative) 10/20/17 20:10 Urine Bilirubin Negative (Negative) 10/20/17 20:10 Urine Urobilinogen Negative (Negative) 10/20/17 20:10 Ur Leukocyte Esterase Negative (Negative) 10/20/17 20:10 Urine WBC (Auto) Trace(0-5/hpf) (Absent) 10/20/17 20:10 Urine RBC (Auto) Trace(0-2/hpf) (Absent) 10/20/17 20:10 Ur Squamous Epith Cells Present (Absent) H 10/20/17 20:10 Urine Bacteria Absent (Absent) 10/20/17 20:10 Urine Glucose Negative (Negative) 10/20/17 20:10 Blood Type A Positive 10/20/17 12:05 Antibody Screen Negative 10/20/17 12:05 General: 62 y/o female NAD, A&O, sitting comfortably in chair LLE- splint c/d/i, able F/E knee, sensation intact to light touch distally. Capillary refill brisk distally. Assessment: []non operative Left ankle fx Plan: []Keep splint dry and intact NWB LLE cont pain management admitted for multiple medical comorbidities including CVA will continue to follow
[2017-10-25] MEDS: Atorvastatin* 20 MG TAB PO SCH (17:44)
--- NOTE | 2017-10-25 21:10 | PN ---
Subjective Date of Service: 10/25/17 Interval History: Patient without complaints today Objective Active Medications: Acetaminophen (Tylenol Tab*) 650 mg PO Q4H PRN PRN Reason: FEVER/PAIN Hydrocodone Bitart/Acetaminophen ([place] 5-325 Tab*) 1 tab PO Q4H PRN PRN Reason: PAIN Allopurinol (Zyloprim Tab*) 100 mg PO DAILY [facility] Last Admin: 10/25/17 08:29 Dose: 100 mg Aspirin (Aspirin Tab*) 325 mg PO DAILY [facility] Last Admin: 10/25/17 08:27 Dose: 325 mg Atorvastatin Calcium (Lipitor*) 20 mg PO 1700 [facility] Last Admin: 10/25/17 17:44 Dose: 20 mg Fluoxetine HCl (Prozac Cap*) 20 mg PO DAILY [facility] Last Admin: 10/25/17 08:29 Dose: 20 mg Hydralazine HCl (Apresoline Iv*) 5 mg IV SLOW PU Q6H PRN PRN Reason: BLOOD PRESSURE Last Admin: 10/20/17 16:14 Dose: 5 mg Ondansetron HCl (Zofran Inj*) 4 mg IV Q6H PRN PRN Reason: NAUSEA Last Admin: 10/20/17 15:57 Dose: 4 mg Polyethylene Glycol/Electrolytes (Miralax*) 17 gm PO DAILY PRN PRN Reason: CONSTIPATION Last Admin: 10/23/17 08:53 Dose: 17 gm Vital Signs 10/25/17 10/25/17 10/25/17 00:08 00:41 03:25 Temperature 98.3 F 98.4 F Pulse Rate 62 58 Respiratory 16 16 Rate Blood Pressure 148/69 154/75 (mmHg) O2 Sat by Pulse 96 96 98 Oximetry 10/25/17 10/25/17 10/25/17 07:41 08:00 12:14 Temperature 97.4 F 98.0 F Pulse Rate 56 56 Respiratory 16 16 16 Rate Blood Pressure 157/73 152/68 (mmHg) O2 Sat by Pulse 98 98 96 Oximetry 10/25/17 10/25/17 15:52 19:10 Temperature 98.3 F 98.4 F Pulse Rate 57 62 Respiratory 14 14 Rate Blood Pressure 168/72 159/71 (mmHg) O2 Sat by Pulse 99 99 Oximetry Oxygen Devices in Use Now: None Eyes: No Scleral Icterus Ears/Nose/Mouth/Throat: Mucous Membranes Moist Neck: No Thyroid Enlargement, Masses Respiratory: Clear to Auscultation Cardiovascular: - - S1S2 jorge alberto Abdominal: NL Sounds; No Tenderness; No Distention, No Hepatosplenomegaly Lymphatic: No Cervical Adenopathy Skin: No Rash or Ulcers Neurological: Alert and Oriented x 3 Result Diagrams: 10/22/17 06:46 10/22/17 08:14 Additional Lab and Data: Lab Results 10/20/17 10/20/17 10/20/17 Range/Units 12:05 12:05 12:05 WBC 10.1 (3.5-10.8) 10^3/ul RBC 5.03 (4.0-5.4) 10^6/ul Hgb 15.0 (12.0-16.0) g/dl Hct 44 (35-47) % MCV 88 (80-97) fL MCH 30 (27-31) pg MCHC 34 (31-36) g/dl RDW 13 (10.5-15) % Plt Count 218 (150-450) 10^3/ul MPV 8 (7.4-10.4) um3 Neut % (Auto) 80.7 (38-83) % Lymph % (Auto) 13.3 L (25-47) % [place] % (Auto) 4.5 (1-9) % Eos % (Auto) 0.8 (0-6) % Baso % (Auto) 0.7 (0-2) % Absolute Neuts (auto) 8.1 H (1.5-7.7) 10^3/ul Absolute Lymphs (auto) 1.3 (1.0-4.8) 10^3/ul Absolute Monos (auto) 0.4 (0-0.8) 10^3/ul Absolute Eos (auto) 0.1 (0-0.6) 10^3/ul Absolute Basos (auto) 0.1 (0-0.2) 10^3/ul Absolute Nucleated RBC 0.01 10^3/ul Nucleated RBC % 0.1 INR (Anticoag Therapy) 0.84 L (0.89-1.11) APTT 24.5 L (26.0-36.3) seconds Sodium 138 (133-145) mmol/L Potassium 3.9 (3.5-5.0) mmol/L Chloride 103 (101-111) mmol/L Carbon Dioxide 26 (22-32) mmol/L Anion Gap 9 (2-11) mmol/L BUN 19 (6-24) mg/dL Creatinine 0.86 (0.51-0.95) mg/dL Est GFR ( Amer) 86.0 (>60) Est GFR (Non-Af Amer) 66.9 (>60) BUN/Creatinine Ratio 22.1 H (8-20) Glucose 142 H (70-100) mg/dL Lactic Acid (0.5-2.0) mmol/L Calcium 9.5 (8.6-10.3) mg/dL Total Bilirubin 0.40 (0.2-1.0) mg/dL AST 20 (13-39) U/L ALT 18 (7-52) U/L Alkaline Phosphatase 87 (34-104) U/L Troponin I 0.00 (<0.04) ng/mL Total Protein 7.1 (6.4-8.9) g/dL Albumin 4.1 (3.2-5.2) g/dL Globulin 3.0 (2-4) g/dL Albumin/Globulin Ratio 1.4 (1-3) Triglycerides 212 mg/dL Cholesterol 264 mg/dL LDL Cholesterol 174 mg/dL HDL Cholesterol 48.1 mg/dL Blood Type Antibody Screen 10/20/17 10/20/17 Range/Units 12:05 12:05 WBC (3.5-10.8) 10^3/ul RBC (4.0-5.4) 10^6/ul Hgb (12.0-16.0) g/dl Hct (35-47) % MCV (80-97) fL MCH (27-31) pg MCHC (31-36) g/dl RDW (10.5-15) % Plt Count (150-450) 10^3/ul MPV (7.4-10.4) um3 Neut % (Auto) (38-83) % Lymph % (Auto) (25-47) % [place] % (Auto) (1-9) % Eos % (Auto) (0-6) % Baso % (Auto) (0-2) % Absolute Neuts (auto) (1.5-7.7) 10^3/ul Absolute Lymphs (auto) (1.0-4.8) 10^3/ul Absolute Monos (auto) (0-0.8) 10^3/ul Absolute Eos (auto) (0-0.6) 10^3/ul Absolute Basos (auto) (0-0.2) 10^3/ul Absolute Nucleated RBC 10^3/ul Nucleated RBC % INR (Anticoag Therapy) (0.89-1.11) APTT (26.0-36.3) seconds Sodium (133-145) mmol/L Potassium (3.5-5.0) mmol/L Chloride (101-111) mmol/L Carbon Dioxide (22-32) mmol/L Anion Gap (2-11) mmol/L BUN (6-24) mg/dL Creatinine (0.51-0.95) mg/dL Est GFR ( Amer) (>60) Est GFR (Non-Af Amer) (>60) BUN/Creatinine Ratio (8-20) Glucose (70-100) mg/dL Lactic Acid 1.2 (0.5-2.0) mmol/L Calcium (8.6-10.3) mg/dL Total Bilirubin (0.2-1.0) mg/dL AST (13-39) U/L ALT (7-52) U/L Alkaline Phosphatase (34-104) U/L Troponin I (<0.04) ng/mL Total Protein (6.4-8.9) g/dL Albumin (3.2-5.2) g/dL Globulin (2-4) g/dL Albumin/Globulin Ratio (1-3) Triglycerides mg/dL Cholesterol mg/dL LDL Cholesterol mg/dL HDL Cholesterol mg/dL Blood Type A Positive Antibody Screen Negative Microbiology and Other Data: Microbiology 10/20/17 15:56 Nasal Screen MRSA (PCR)(ELYSE) - Final Nasal Mrsa Negative Assess/Plan/Problems-Billing Assessment: - Patient Problems (1) Right sided cerebral infarction Current Visit: Yes Status: Acute Code(s): I63.9 - CEREBRAL INFARCTION, UNSPECIFIED SNOMED Code(s): 883919991 Comment: Improvement. Awaiting rehab. Hopeful for PMRU. (2) Closed left ankle fracture Current Visit: Yes Status: Acute Code(s): S82.892A - OTH FRACTURE OF LEFT LOWER LEG, INIT FOR CLOS FX SNOMED Code(s): 70716515 Comment: Due to fall when patient got out of bed unsupervised. Ortho consult appreciated. NWB status for now. See above. Hoping for PMRU. (3) Fibromyalgia Current Visit: Yes Status: Acute Code(s): M79.7 - FIBROMYALGIA SNOMED Code (s): 063519879 Comment: Stable. Continue fluoxetine. (4) Gout Current Visit: Yes Status: Acute Code(s): M10.9 - GOUT, UNSPECIFIED SNOMED Code(s): 63895460 Comment: Stable. Continue allopurinol. (5) Hyperlipidemia Current Visit: Yes Status: Acute Code(s): E78.5 - HYPERLIPIDEMIA, UNSPECIFIED SNOMED Code(s): 36890157 Comment: See above. Doing well on Lipitor. (6) Mediastinal mass Current Visit: Yes Status: Acute Comment: 2.8 cm anterior mediastinal mass on CTA head 10/20. Needs outpt w/up. (7) DVT prophylaxis Current Visit: Yes Status: Acute Code(s): DDP5233 - SNOMED Code(s): 106347180 Comment: Franc[place]a
[2017-10-26] MEDS: Aspirin TAB* 325 MG PO SCH (08:04)
[2017-10-26] MEDS: FLUoxetine CAP* 20 MG PO SCH (08:05)
[2017-10-26] MEDS: Allopurinol TAB* 100 MG PO SCH (08:05)
[2017-10-26 11:54] VITALS: BP 148/71
--- NOTE | 2017-10-26 12:57 | DS ---
CC: GORDO Wilson; Dr. Jordan Irby, Neurology; Dr. Pierre, Orthopedics * DATE OF ADMISSION: 10/20/2017. DATE OF DISCHARGE: 10/26/2017. ADMISSION DIAGNOSES: Right-sided CVA, gout, hyperlipidemia, fibromyalgia, history of uterine cancer, 2.8 cm mediastinal mass. DISCHARGE DIAGNOSES: Right-sided CVA, gout, hyperlipidemia, fibromyalgia, history of uterine cancer, 2.8 cm mediastinal mass, left ankle fracture. HOSPITAL COURSE: The patient is a 62-year-old woman who presented to [facility] with a chief complaint of left-sided weakness. Please see history and physical for further details. It was thought that she likely had a right-sided cerebrovascular accident. Neurology was consulted. The patient got TPA. She was placed in the ICU. The patient did improve somewhat, but on October 22 the patient was making an attempt to get out of her bed, apparently fell and did sustain a left ankle fracture. The patient was doing well and did not require much in terms of pain medication, but was nonweightbearing. The patient requires short- term rehab and will be transferred to short-term rehab on 10/26/2017. PHYSICAL EXAMINATION ON THE DATE OF DISCHARGE: Well-developed, well-nourished woman sitting up in her chair in no acute distress. Vital Signs: Temperature 98.5 degrees, heart rate 58 beats per minute, respiratory rate 16 breaths per minute, pulse ox 97 percent, blood pressure 140/71. HEENT: Normocephalic, atraumatic. Pupils equal, round and reactive to light. Moist mucus membranes. Neck: Supple. No JVD, bruits, palpable thyroid, lymphadenopathy. Chest: Clear to auscultation and percussion bilaterally. Cardiovascular: S1, S2 appreciated. Abdomen: Positive bowel sounds in all four quadrants, soft, nontender, nondistended. Extremities: No cyanosis, clubbing or edema. She has a dressing over her left ankle. Neuro: She has a left-sided hemiparesis. Skin : No rashes. STUDIES DONE WHILE IN THE HOSPITAL: 1. Brain CT, 10/20/2017: Impression: No evidence for gross acute infarct, mass effect or hemorrhage. Findings most consistent with chronic small vessel ischemic changes. 2. Chest x-ray, 10/20/2017: Impression: No evidence for acute intrathoracic disease. 3. Head CTA, 10/20/2017: Impression: No CT angiographic abnormalities. Source images show a 2.8 cm anterior mediastinal mass. Differential considerations include, but are not limited to lymphoma, teratoma or thymic lesion. Consider PET imaging. Mediastinoscopy may be indicated. 4. Brain MRI, 10/21/2017: Impression: Solitary focus of subacute ischemia at the right midbrain. No corresponding mass effect. While not entirely specific , the white matter has signal changes at the cerebrum most suggestive of chronic small vessel ischemic changes. 5. Ankle x-ray, 10/22/2017: Impression: Wilkins type B fracture pattern lateral malleolus. 6. Brain CT, 10/22/2017: Impression: There is a focal hypodensity at the right osmar measuring 1.3 x 1.9 cm in the axial plane. Please correlate to signs or symptoms of pontine infarct. Evidence of chronic microvascular disease similar in appearance to the prior CT of the brain. No acute intracranial hemorrhage is identified. DISCHARGE MEDICATIONS: 1. Xyzal 5 mg daily. 2. Allopurinol 100 mg daily. 3. Zetia 10 mg daily. 4. Estradiol 0.5 mg daily. 5. Fluoxetine 20 mg daily. 6. MiraLax 17 gm daily. 7. Zofran 4 mg every q.6 hours prn. 8. Lipitor 20 mg daily. 9. Aspirin 325 mg daily. DISCHARGE PLAN: The patient will be discharge to a detention facility. The patient should have a follow-up with her PCP within one to two weeks. 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 The patient should return to the ED if symptoms worse or recur. Over 45 minutes were spent on this discharge and more than 25 minutes of which were spent in direct [id number] contact with the patient in evaluation, physical exam, counseling and coordination of care. [id number]/[facility] #: [id number] NAIF
== END 2017-10-26 12:45 | DRG 61 ==
LOC: ED 11:31 → ICU 14:38 → MEDTELE 10-21 16:00
PROVIDERS: ADMIT Internal Medicine; ATTEND Internal Medicine
DX: I63.9 Cerebral infarction, unspecified (principal); J98.59 Other diseases of mediastinum, not elsewhere classified; G81.94 Hemiplegia, unspecified affecting left nondominant side; E78.5 Hyperlipidemia, unspecified; M10.9 Gout, unspecified; R29.702 NIHSS score 2; M79.7 Fibromyalgia; R29.810 Facial weakness; R27.0 Ataxia, unspecified; S82.62XA Displaced fracture of lateral malleolus of left fibula, initial encounter for closed fracture; W06.XXXA Fall from bed, initial encounter; Y92.230 Patient room in hospital as the place of occurrence of the external cause; Z85.42 Personal history of malignant neoplasm of other parts of uterus; Z88.6 Allergy status to analgesic agent; Z98.51 Tubal ligation status; Z90.710 Acquired absence of both cervix and uterus; Z90.722 Acquired absence of ovaries, bilateral; Z90.79 Acquired absence of other genital organ(s); Z79.82 Long term (current) use of aspirin
CPT/HCPCS: 36415; 70450; 70496; 70498; 70551; 71010; 80048; 80053; 80061; 81003; 81015; 83036; 83605; 84484; 85025; 85610; 85730; 86850; 86900; 86901; 87641; 93005; 93306; 94760; 97112; 97530; A9270-GY; J0360; J2405; J2997; J3480; Q9967